=== PATIENT | female | born 1960 | race Caucasian/White ===

== ENCOUNTER 2017-10-29 08:57 | Emergency (ER) | payer BC, OTHER ==
[~2017-10-29] VITALS: Ht 167.6 cm; Wt 105.7 kg
[~2017-10-29 08:57] MED LIST: ALPR.25T; ALPR.25T PO; AMOX-355 PO; ATROVENT; BISA5TAB8 PO; BUDE0.5A2 IH; GLIM1TAB PO; KRILL OIL 300 MG PO; LOSA100T16 PO; LOVA10TA PO; LYSI1000 PO; MAXIDE; MELA1TAB16 PO; METF-380 PO; MULT-963 PO; OMEP20TA2 PO; PRD20T; PRD20T PO; PRILOSEC OTC; SLMFT1E; TRIA1TAB2 PO; VENL150T4 PO; VLS80C; VNL75T; [UNRECOGNIZED DRUG - MIXTURE]
--- OUTSIDE RECORDS SUMMARY | 2017-10-29 09:06 | XMS REPORT | Clinical Summary ---
Author Author User, Accumulate Organization [facility] [place] Address Unknown Phone Unavailable Allergies, Adverse Reactions, Alerts Allergy Name Reaction Description Start Date Severity Status Provider ALBUTEROL Critical No Longer Active Jaki Quinteros Conditions or Problems Problem Name Problem Code Onset Date Status Entry Date Provider Comment Standard Description Annotate HYPERTENSION, BENIGN ESSENTIAL, CONTROLLED 401.1 Active Jaki Quinteros Benign essential hypertension OBESITY 278.00 Resolved Jaki Quinteros Obesity, unspecified WEIGHT GAIN, ABNORMAL 783.1 Active Jaki Qiunteros Abnormal weight gain ALLERGIC RHINITIS, SEASONAL 477.9 Resolved Jaki Quinteros Allergic rhinitis, cause unspecified DIARRHEA, CHRONIC 787.91 Resolved Jaki Quinteros Diarrhea ABDOMINAL BLOATING 787.3 Resolved Jaki Quinteros Flatulence, eructation, and gas pain ABDOMINAL PAIN, RECURRENT 789.00 Resolved Jaki Quinteros Abdominal pain, unspecified site GASTROESOPHAGEAL REFLUX DISEASE, CHRONIC 530.81 Active Jaki Quinteros Esophageal reflux WELL WOMAN V70.0 Resolved Jaki Quinteros Routine general medical examination at a health care facility SHOULDER PAIN 719.41 Resolved Jaki Quinteros Pain in joint involving shoulder region right WELL WOMAN V70.0 Resolved Jaki Quinteros Routine general medical examination at a health care facility IRREGULAR MENSES 626.4 Resolved Jaki Quinteros Irregular menstrual cycle ADULT SITUATIONAL REACTION 309.9 Resolved Jaki Quinteros Unspecified adjustment reaction DIZZINESS 780.4 Resolved Jaki Quinteros Dizziness and giddiness CERVICAL LYMPHADENOPATHY, RIGHT 785.6 Resolved Jaki Quinteros Enlargement of lymph nodes HYPERTRIGLYCERIDEMIA 272.1 Resolved Jaki Quinteros Pure hyperglyceridemia GANGLION CYST 727.43 Resolved Jaki Quinteros Ganglion, unspecified SINUSITIS 473.9 Resolved Jaki Quinteros Unspecified sinusitis (chronic) HAND PAIN, RIGHT 729.5 Resolved Jaki Quinteros Pain in limb CELLULITIS 682.9 Resolved Jaki Quinteros Cellulitis and abscess of unspecified sites SINUSITIS, SPHENOIDAL, ACUTE 461.3 Resolved Jaki Quinteros Acute sphenoidal sinusitis HYPERGLYCEMIA, MILD 790.6 Resolved Jaki Quinteros Other abnormal blood chemistry WHEEZING 786.07 Resolved Jaki Quinteros Wheezing RESPIRATORY FAILURE, ACUTE 518.81 Resolved Jaki Quinteros Acute respiratory failure ASTHMA 493.9 Resolved Jaki Quinteros Asthma, unspecified ASTHMA, CHRN OBST W/(ACUTE) EXACERBATION 493.22 Resolved Jaki Quinteros Chronic obstructive asthma, with (acute) exacerbation WHEEZING 786.07 Resolved Jaki Quinteros Wheezing DIABETES MELLITUS, NONINSULIN DEPENDENT (NIDDM) 250.00 Active Jaki Quinteros Diabetes mellitus without mention of complication, type II or unspecified type, not stated as uncontrolled HYPERTRIGLYCERIDEMIA 272.1 Active Jaki Quinteros Pure hyperglyceridemia ABNORMAL MAMMOGRAM 793.80 Resolved Jaki Quinteros Abnormal mammogram, unspecified CELLULITIS 682.9 Resolved Jaki Quinteros Cellulitis and abscess of unspecified sites RENAL INSUFFICIENCY 593.9 Resolved Jaki Quinteros Unspecified disorder of kidney and ureter WHEEZING 786.07 Resolved Jaki Quinteros Wheezing BRONCHITIS 490 Resolved Jaki Quinteros Bronchitis, not specified as acute or chronic FEVER PRESENTING CONDITIONS CLASSIFIED ELSEWHERE 780.61 Resolved Jaki Quinteros Fever presenting with conditions classified elsewhere RESPIRATORY FAILURE, ACUTE 518.81 Resolved Jaki Quinteros Acute respiratory failure ANKLE PAIN, RIGHT 719.47 Resolved Jaki Quinteros Pain in joint involving ankle and foot HEALTH SCREENING V70.0 Resolved Jaki Quinteros Routine general medical examination at a health care facility ASTHMA, INTERMITTENT, MODERATE 493.10 Active Jaki Quinteros Intrinsic asthma, unspecified MENOPAUSAL SYNDROME 627.0 Active Jaki Quinteros Premenopausal menorrhagia SINUSITIS, SPHENOIDAL, ACUTE 461.3 Active Jaki Quinteros Acute sphenoidal sinusitis Medication List Medication Instructions Start Date Stop Date Generic Name NDC Status Provider Patient Instruction AMARYL 2 MG TAB 2 PO BID GLIMEPIRIDE 61784127294 Active Liliane Kenny PULMICORT 0.5 MG/2ML SUSP 1 Neb treatment BID BUDESONIDE 64534481311 Active Jaki Quinteros AUGMENTIN 500-125 MG TAB 1 PO BID AMOXICILLIN-POT CLAVULANATE 07180118107 No Longer Active Jakifranci Quinteros PREDNISONE 10 MG TAB 2 PO at 1 time twice daily for two days. Then 2 PO at one time once daily for two days. Then 1 PO daily for two days 2013 PREDNISONE 32294310904 No Longer Active Jakifranci Quinteros TOPAMAX 25 MG TABS 1 PO BID TOPIRAMATE 19353020279 No Longer Active Jakifranci Quinteros LIDOCAINE VISCOUS 2 % SOLN 1 tsp gargled q2hrs prn LIDOCAINE HCL 25426484479 No Longer Active Jaki Quinteros ONE TOUCH ULTRA MINI GLUCOMETER STRIPS Check sugar BID ONE TOUCH ULTRA MINI GLUCOMETER STRIPS No Longer Active Jakifranci Quinteros PEN NEEDLES 5/16" 31G X 8 MM MISC as directed INSULIN PEN NEEDLE 28693749995 No Longer Active Jakifranci Quinteros SM MELATONIN 3 MG TABS 1 PO QHS MELATONIN 86138372508 No Longer Active Jakifranci Quinteros PULMICORT 0.5 MG/2ML SUSP 1 Neb treatment BID BUDESONIDE 23987319362 No Longer Active Jaki Quinteros ONE TOUCH FINEPOINT LANCETS MISC As Directed DX: Diabetes 12/10 LANCETS 60485930673 No Longer Active Jakifranci Quinteros PEN NEEDLES 16" 31G X 8 MM MISC as directed INSULIN PEN NEEDLE 50893814704 No Longer Active Jakifranci Quinteros PREDNISONE 20 MG TAB 2 pills at once for 5 days then 1 pill daily for 5 days PREDNISONE 69689334676 No Longer Active Jakifranci Quinteors SINGULAIR 10 MG TABS 1 PO QHS MONTELUKAST SODIUM 42061783570 Active Jaki Piper Quinteros PREDNISONE 20 MG TAB 3 pills daily at once for 2 days, 2 pills daily at once for 2 days, 1 once daily for 2 days PREDNISONE 81169334874 No Longer Active Jaki Quinteros ALBUTEROL SULFATE 0.083 % NEBU SOLN 1 treatment QID prn ALBUTEROL SULFATE 48880646941 Active Jaki Quinteros PREDNISONE 20 MG TAB 3 pills daily at once for 2 days, 2 pills daily at once for 2 days, 1 once daily for 2 days PREDNISONE 59282303034 No Longer Active Jaki Quinteros AUGMENTIN 875-125 MG TAB 1 PO BID AMOXICILLIN-POT CLAVULANATE 86584412682 No Longer Active Jaki Quinteros LATISSE 0.03 % SOLN Apply to eyelashes daily BIMATOPROST 51514287341 No Longer Active Jaki Quinteros TRICOR 48 MG TABS 1 PO daily FENOFIBRATE 95857854353 No Longer Active Jaki Quinteros VICTOZA 18 MG/3ML SOLN 1.8 mg injection daily LIRAGLUTIDE 70535397099 No Longer Active Jaki AMADOR'Jose Alberto NASAL SPRAY (DEXAMETHASONE, GENTAMICIN, SALINE) 2 puffs each nostril TID for [address] AMADOR'Jose Alberto NASAL SPRAY ( DEXAMETHASONE, GENTAMICIN, SALINE) No Longer Active Liliane Kenny AUGMENTIN 875-125 MG TAB 1 PO BID AMOXICILLIN-POT CLAVULANATE 74737747605 No Longer Active Liliane Kenny PROGESTERONE CREAM As directed PROGESTERONE CREAM No Longer Active Jaki Quinteros PEPCID 20 MG TAB 1 PO Qam FAMOTIDINE 13872894701 No Longer Active Jaki Quinteros GLUCOPHAGE 1000 MG TABS 1 PO BID METFORMIN HCL 50285966610 Active Jaki Quinteros COZAAR 100 MG TABS 1 PO daily LOSARTAN POTASSIUM 21570280695 Active Jaki Quinteros BACTROBAN 2 % OINTMENT apply to affected areas BID for 7 days MUPIROCIN 72246368134 No Longer Active Jaki Quinteros BACTRIM DS 800-160 MG TAB 1 PO BID TRIMETHOPRIM- SULFAMETHOXAZOLE 80698468431 No Longer Active Jaki Quinteros ACTICIN 5 % CREA as directed PERMETHRIN 49632095207 No Longer Active Jaki Quinteros PREMPRO 0.3-1.5 MG TABS 1 PO daily CONJ ESTROG- MEDROXYPROGEST DIANE 96838319424 No Longer Active Jaki Quinteros CLARITIN 10 MG TAB 1 PO daily LORATADINE 50708573773 Active Jaki Quinteros ASCENSIA CONTOUR TEST STRP check blood sugar twice daily DX: Diabetes 07/09 GLUCOSE BLOOD 13824340954 No Longer Active Jaki Quinteros ONE TOUCH ULTRA GLUCOMETER As Directed DX: Diabetes ONE TOUCH ULTRA GLUCOMETER No Longer Active Jaki Quinteros DHEA 25 MG TABS 1 po daily PRASTERONE (DHEA) 96618929160 No Longer Active Jaki Quinteros VITAMIN E 400 UNIT CAPS 1 PO daily VITAMIN E 99754866644 No Longer Active Jaki Quinteros FLONASE 50 MCG/DOSE INHALANT 1 puff each nostril BID prn rare use due to increased hoarsness FLONASE 50 MCG/DOSE INHALANT 39405160664 No Longer Active Jaki Quinteros MICRONASE 1.25 MG TABS 1 PO BID (on hold as of 11/19/08 due to lifestyle change ) GLYBURIDE 88972306499 No Longer Active Jaki Quinteros FISH OIL 1000 MG CAPS 3 PO daily OMEGA-3 FATTY ACIDS 85232574445 Active Jaki Quinteros METFORMIN HCL 1000 MG TABS 1 PO BID METFORMIN HCL 81153760397 No Longer Active Jaki AMADOR'S NASAL SPRAY (DEXAMETHASONE, GENTAMICIN, SALINE) 2 puffs each nostril TID for [address] AMADOR'Jose Alberto NASAL SPRAY ( DEXAMETHASONE, GENTAMICIN, SALINE) No Longer Active Jaki Piper Quinteros TESSALON 200 MG CAPS 1 PO TID prn cough BENZONATATE 20588147157 No Longer Active Jaki Piper Quinteros ROBITUSSIN A-C 10-100 MG/5ML SYRUP 1 teaspoon PO Q 4-6 hr prn ROBITUSSIN A-C 10-100 MG/5ML SYRUP 17473614783 No Longer Active Jaki Piper Quinteros LEVAQUIN 500 MG TAB 1 PO QD LEVOFLOXACIN 26124706070 No Longer Active Jaki Piper Quinteros CORICIDIN HBP FLU 15-500-2 MG TABS as directed DM- APAP-CPM 75118958687 No Longer Active Jaki Piper Quinteros LOVASTATIN 10 MG TABS 1 po daily LOVASTATIN 11213730848 Active Jaki iPper Quinteros VITAMIN D 400 UNIT CAPS 1 PO daily CHOLECALCIFEROL 94606618019 Active Jaki Piper Quinteros MULTIVITAMINS TABS 1 PO QD MULTIPLE VITAMIN 82267780130 Active Jaki Piper Quinteros CLARITIN 10 MG TAB 1 PO daily LORATADINE 55929597753 No Longer Active Jaki Piper Quinteros PRILOSEC 20 MG CPDR 1 PO Qhs OMEPRAZOLE 78056400369 Active Jaki Piper Quinteros BYETTA 10 MCG PEN 10 MCG/0.04ML SOLN 1 injection twice daily 30min before meals EXENATIDE 30602265125 No Longer Active Jaki Piper Quinteros ADVAIR DISKUS 250-50 MCG/DOSE MISC 1 puff BID (On hold 09/11/07 due to hoarseness) FLUTICASONE-SALMETEROL 77069865347 No Longer Active Jaki Piper Quinteros ATROVENT SOLN 1 treatment Q6hrs prn wheezing IPRATROPIUM BROMIDE SOLN 35398816848 No Longer Active Jaki Quinteros HOLLIE 180 MG TABS 1 PO QD FEXOFENADINE HCL 56469424441 No Longer Active Jaki Quinteros ADVAIR DISKUS 100-50 MCG/DOSE MISC 1 puff BID FLUTICASONE-SALMETEROL 21204418722 No Longer Active Liliane Kenny ROBITUSSIN A-C 10-100 MG/5ML SYRUP 5cc PO Q 4-6 hr prn ROBITUSSIN A-C 10-100 MG/5ML SYRUP 12109999583 No Longer Active Jaki Quinteros PREDNISONE 20 MG TAB 3 PO daily for 2 days, 2 PO daily for 2 days, 1 PO daily for 3 days PREDNISONE 24077954841 No Longer Active Jaki AMADOR'S NASAL SPRAY (DEXAMETHASONE, GENTAMICIN, SALINE) 2 puffs each nostril TID for [address] AMADOR'S NASAL SPRAY ( DEXAMETHASONE, GENTAMICIN, SALINE) No Longer Active Jaki Quinteros LEVAQUIN 500 MG TAB 1 PO QD for 7 days LEVOFLOXACIN 43497683249 No Longer Active Jaki Quinteros ALBUTEROL SULFATE 0.083 % NEBU SOLN 1 breathing treatment TID prn wheezing ALBUTEROL SULFATE 18321302308 No Longer Active Jaki Quinteros AUGMENTIN 875-125 MG TAB 1 PO BID for 10 days AMOXICILLIN-POT CLAVULANATE 37940315271 No Longer Active Jaki Quinteros EFFEXOR XR 150 MG CP24 1 PO daily VENLAFAXINE HCL 95465079087 Active Jaki Piper Quinteros AUGMENTIN 875-125 MG TAB 1 PO BID AMOXICILLIN-POT CLAVULANATE 75681947404 No Longer Active Jaki AMADOR'Jose Alberto NASAL SPRAY (DEXAMETHASONE, GENTAMICIN, SALINE) 2 puffs each nostril TID for [address] VALDIVIA NASAL SPRAY ( DEXAMETHASONE, GENTAMICIN, SALINE) No Longer Active Jaki Quinteros NAPROXEN 500 MG TAB 1 PO BID for 5 days after taking Prednisone NAPROXEN 63014316126 No Longer Active Jaki Quinteros PREDNISONE 20 MG TAB 3 PO daily for 1 day, then 2 PO daily for 2 days PREDNISONE 63307439687 No Longer Active Jaki Quinteros EFFEXOR XR 37.5 MG CP24 1 PO daily for 7 days then change to 75mg tablets VENLAFAXINE HCL 50773674938 No Longer Active Liliane Kenny XANAX 0.25 MG TABS 1/2 to 1 pill every 6hrs prn ALPRAZOLAM 09445745820 Active Liliane Kenny PHENTERMINE HCL 37.5 MG CAPS 1 PO Daily Dx: Wt loss PHENTERMINE HCL 10659213304 No Longer Active Jaki Quinteros MIDOL CRAMP FORMULA MAX ST 200 MG TABS 2 PO QHS prn IBUPROFEN 53893071514 No Longer Active Jaki Quinteros LEXAPRO 10 MG TABS 1 PO daily ESCITALOPRAM OXALATE 99164271907 No Longer Active Jaki Quinteros ORTHO TRI-CYCLEN (28) 0.035 MG TABS as directed. Start Monday05/15/05 even if on period NORGESTIMATE-ETHINYL ESTRADIOL 70372460682 No Longer Active Jaki Quinteros AMOXICILLIN 875 MG TABS 1 po BID x 7 days AMOXICILLIN 65499973578 No Longer Active Liliane Kenny PHENTERMINE HCL 37.5 MG CAPS 1 daily PHENTERMINE HCL 18004360486 No Longer Active Jaki Quinteros AMOXIL 500 MG CAPS 1 po bid AMOXICILLIN 89115209881 No Longer Active Jaki Piper Quinteros LEVAQUIN 500 MG TAB 1 PO QD LEVOFLOXACIN 31292519698 No Longer Active Jaki Piper Quinteros NEXIUM 40 MG CPDR 1 po qd ESOMEPRAZOLE MAGNESIUM 09135668383 No Longer Active Jaki Piper Quinteros MAXZIDE-25 25-37.5 MG TABS 1 po daily TRIAMTERENE-HCTZ 74407395436 Active Jaki Piper Quinteros DIOVAN 80 MG CAPS 1 po daily VALSARTAN No Longer Active Jaki Quinteros Vital Signs Date Name Value Unit Range Description blood pressure, diastolic - 8462-4 78 mm[Hg] BP monteiro blood pressure, systolic - 8480-6 126 mm[Hg] BP sys pulse rate E&M - 8867-4 80 /min Heart rate respiratory rate E&M - 9279-1 14 /min Resp rate blood pressure, diastolic - 8462-4 76 mm[Hg] BP monteiro blood pressure, systolic - 8480-6 146 mm[Hg] BP sys pulse rate E&M - 8867-4 104 /min Heart rate respiratory rate E&M - 9279-1 20 /min Resp rate temperature E&M 98.1 [degF] Body temperature weight E&M - 3141-9 244 [lb_av] Weight Measured blood pressure, diastolic - 8462-4 75 mm[Hg] BP monteiro blood pressure, systolic - 8480-6 145 mm[Hg] BP sys pulse rate E&M - 8867-4 108 /min Heart rate respiratory rate E&M - 9279-1 14 /min Resp rate temperature E&M 98.6 [degF] Body temperature weight E&M - 3141-9 240 [lb_av] Weight Measured Diagnostic Results Date Name Value Unit Range Description Clinical Lists Update: CBC,CMP,Chol,Trig,TSH,HgA1c - Chemistry albumin, serum 4.3 g/dL Estimated Glomerular Filtration Rate (calc) 71 mL/min/1.73m2 urea nitrogen, blood 14 mg/dL calcium, serum 9.7 mg/dL chloride, serum 102 mmol/L cholesterol, serum 171 mg/dL carbon dioxide, venous blood 28.0 mmol/L creatinine, serum 0.9 mg/dL hemoglobin A1C, blood, as % of total hemoglobin 6.2 % thyroid stimulating hormone, serum 3.82 u[iU]/mL potassium, serum 4.3 mmol/L protein, total, serum 6.7 g/dL aspartate aminotransferase (SGOT), serum 49 U/L alanine aminotransferase (SGPT), serum 67 U/L bilirubin, serum, total 0.3 mg/dL triglyceride, serum, fasting 265 mg/dL sodium, serum 140 mmol/L anion gap, serum 14 glucose, plasma fasting 144 mg/dL alkaline phosphatase, serum 96 U/L Clinical Lists Update: CBC,CMP,Chol,Trig,TSH,HgA1c - Hematology hemoglobin, blood 12.5 g/dL hematocrit, blood 40 % platelet count 342 10*3/mm3 erythrocyte (RBC) count 4.53 10*6/mm3 leukocyte count, blood 7.2 10*3/mm3 mean corpuscular volume, RBC 89 fL red blood cell distribution width 15.0 % Clinical Lists Update: CBC,CMP,FLP,TSH,HGA1C,MICROALBUMIN - Chemistry creatinine, serum 0.8 mg/dL urea nitrogen, blood 14 mg/dL hemoglobin A1C, blood, as % of total hemoglobin 6.5 % thyroid stimulating hormone, serum 2.32 u[iU]/mL LDL cholesterol, serum 81 mg/dL potassium, serum 4.2 mmol/L protein, total, serum 6.8 g/dL aspartate aminotransferase (SGOT), serum 79 U/L alanine aminotransferase (SGPT), serum 76 U/L bilirubin, serum, total 0.4 mg/dL triglyceride, serum, fasting 187 mg/dL sodium, serum 137 mmol/L anion gap, serum 9 cholesterol/HDL ratio, serum, percent 4.5 glucose, plasma fasting 131 mg/dL Estimated Glomerular Filtration Rate (calc) 81 mL/min/1.73m2 HDL cholesterol, serum 34.0 mg/dL alkaline phosphatase, serum 115 U/L albumin, serum 4.2 g/dL calcium, serum 9.6 mg/dL chloride, serum 99 mmol/L cholesterol, serum 152 mg/dL carbon dioxide, venous blood 33.0 mmol/L Clinical Lists Update: CBC,CMP,FLP,TSH,HGA1C,MICROALBUMIN - Hematology hematocrit, blood 40.3 % hemoglobin, blood 12.8 g/dL platelet count 306 10*3/mm3 erythrocyte (RBC) count 4.65 10*6/mm3 leukocyte count, blood 7.8 10*3/mm3 mean corpuscular volume, RBC 87 fL red blood cell distribution width 14.4 % Clinical Lists Update: CBC,CMP,FLP,TSH,HGA1C,MICROALBUMIN - Urinalysis microalbumin, urine, semiquantitative 0.9 mg/dL Office Visit: Dr Quinteros's Check Up: Established Patient Visit - Chemistry Estimated Glomerular Filtration Rate (calc) 73 mL/min/1.73m2 albumin, serum 4.5 g/dL cholesterol/HDL ratio, serum, percent 3.9 anion gap, serum 12 sodium, serum 139 mmol/L triglyceride, serum, fasting 189 mg/dL bilirubin, serum, total 0.4 mg/dL alanine aminotransferase (SGPT), serum 77 U/L aspartate aminotransferase (SGOT), serum 65 U/L protein, total, serum 7.1 g/dL potassium, serum 4.1 mmol/L LDL cholesterol, serum 92 mg/dL hemoglobin A1C, blood, as % of total hemoglobin 6.3 % HDL cholesterol, serum 45.0 mg/dL creatinine, serum 0.9 mg/dL carbon dioxide, venous blood 32.0 mmol/L cholesterol, serum 175 mg/dL chloride, serum 99 mmol/L calcium, serum 9.8 mg/dL urea nitrogen, blood 16 mg/dL alkaline phosphatase, serum 105 U/L glucose, plasma fasting 156 mg/dL Encounters Code Encounter Date Provider Facility CPT-20622 Ofc Vst, Est Level III 16:17:43 ELECTRONIC TESTER Jaki Quinteros DO, FACP CPT-79954 Ofc Vst, Est Level III 14:23:49 CDT Jaki Quinteros DO, FACP CPT-16888 Ofc Vst, Est Level IV 17:17:38 CDT Jaki Quinteros DO, FACP CPT-47831 Ofc Vst, Est Level IV 14:37:31 CDT Jaki Quinteros DO, FACP CPT-30355 Ofc Vst, Est Level III 14:52:42 CDT Jakifranci Abrams Quinteros, DO, FACP CPT-85681 Ofc Vst, Est Level III 13:19:39 CDT Jaki Piper Abrams Quinteros, DO, FACP CPT-53101 Ofc Vst, Est Level III 15:05:35 CDT Jaki Piper [facility] CPT-39610 Ofc Vst, Est Level III 13:30:25 CDT Jaki Piper Abrams Quinteros, DO, FACP CPT-21425 Ofc Vst, Est Level III 14:04:30 ELECTRONIC TESTER Jakifranci Abrams [place], DO, FACP CPT-48859 Ofc Vst, Est Level III 16:00:40 ELECTRONIC TESTER Jaki Piper Abrams [place], DO, FACP CPT-84542 Ofc Vst, Est Level IV 14:15:56 CDT Jakifranci Abrams [place], DO, FACP CPT-56196 Ofc Vst, Est Level IV 10:42:53 CDT Jaki Piper Abrams [place], DO, FACP CPT-20382 Ofc Vst, Est Level IV 15:02:49 ELECTRONIC TESTER Jaki Abrams [place], DO, FACP CPT-39234 Ofc Vst, Est Level IV 16:37:42 CDT Jaki Piper Abrams Quinteros, DO, FACP CPT-30177 Ofc Vst, Est Level IV 10:58:16 CDT Jaki Piper Abrams Quinteros, DO, FACP CPT-75469 Ofc Vst, Est Level III 15:28:22 ELECTRONIC TESTER Jaki Abrams [place], DO, FACP CPT-57638 Ofc Vst, Est Level IV 11:48:02 ELECTRONIC TESTER Jaki Pipergabriel Abrams Quinteros, DO, FACP CPT-73102 Ofc Vst, Est Level IV 11:26:59 CDT Jaki Piper Abrams Quinteros, DO, FACP CPT-74222 Ofc Vst, Est Level IV 10:04:18 CDT Jaki Piper Abrams Quinteros, DO, FACP CPT-16422 Ofc Vst, Est Level IV 09:41:14 ELECTRONIC TESTER Jaki Piper Abrams [place], DO, FACP CPT-46345 Ofc Vst, Est Level IV 09:33:17 ELECTRONIC TESTER Jaki Abrams [place], DO, FACP CPT-07669 Ofc Vst, Est Level IV 09:48:38 CDT Jaki Piper Abrams [place], DO, FACP CPT-91861 Ofc Vst, Est Level V 10:16:57 CDT Jaki Piper Abrams [place], DO, FACP CPT-82004 Ofc Vst, Est Level IV 11:47:36 CDT Jaki Piper Abrams [place], DO, FACP CPT-15770 Ofc Vst, Est Level V 09:55:01 CDT Jakifranci Abrams [place], DO, FACP CPT-93500 Ofc Vst, Est Level V 10:27:45 ELECTRONIC TESTER Jaki Abrams [place], DO, FACP CPT-90851 Ofc Vst, Est Level IV 10:39:22 CDT Jaki Piper Abrams [place], DO, FACP CPT-25210 Ofc Vst, Est Level IV 15:07:09 CDT Jaki Piper Abrams [place], DO, FACP CPT-13648 Ofc Vst, Est Level IV 09:14:21 CDT Jaki Piper Abrams [place], DO, FACP CPT-06310 Ofc Vst, Est Level IV 12:22:58 CDT Jakifranci Saldaña Aldair Jaki Jose Alberto [place], DO, FACP CPT-64085 Ofc Vst, Est Level IV 09:33:19 ELECTRONIC TESTER Jaki Phoenixner Jaki Jose Alberto [place], DO, FACP CPT-09712 Ofc Vst, Est Level V 09:07:30 ELECTRONIC TESTER Jaki Phoenixner Jaki Abrams [place], DO, FACP CPT-10869 Ofc Vst, Est Level IV 12:05:27 ELECTRONIC TESTER Jaki Saldaña Aldair Jaki Jose Alberto [place], DO, FACP CPT-67179 Ofc Vst, Est Level IV 10:42:39 ELECTRONIC TESTER Jaki Piper Aldair Quinteros, DO, FACP CPT-41665 Ofc Vst, Est Level III 13:30:14 ELECTRONIC TESTER Jaki Saldaña Quinteros Jaki Abrams [place], DO, FACP CPT-50118 Ofc Vst, Est Level III 11:09:47 CDT Jakifranci Quinteros [facility] [place] CPT-70192 Ofc Vst, Est Level III 11:50:59 CDT Jaki Quinteros [facility] [place] CPT-41693 Ofc Vst, Est Level III 15:36:19 ELECTRONIC TESTER Jaki Quinteros [facility] [place] CPT-19816 Ofc Vst, Est Level III 09:10:14 CDT Jaki Piper Quinteros [facility] [place] CPT-01671 Ofc Vst, Est Level IV 09:34:47 CDT Jkaifranci Quinteros [facility] [place] CPT-97447 Ofc Vst, Est Level III 16:25:58 CDT Jaki Quinteros [facility] [place] CPT-32267 Ofc Vst, Est Level III 15:07:15 CDT Jakifranci Quinteros [facility] [place] CPT-75410 Ofc Vst, Est Level III 10:49:04 CDT Jaki Piper Quinteros [facility] [place] CPT-41719 Ofc Vst, Est Level III 09:28:26 CDT Jaki Piper Quinteros [facility] [place] CPT-44197 Ofc Vst, Est Level III 09:35:05 ELECTRONIC TESTER Jaki Quinteros [facility] [place] CPT-13933 Ofc Vst, Est Level II 15:32:59 ELECTRONIC TESTER Jaki Quinteros [facility] [place] CPT-82918 Ofc Vst, Est Level III 10:46:19 ELECTRONIC TESTER Jaki Piper Quinteros [facility] [place] CPT-46839 Ofc Vst, Est Level II 09:46:45 CDT Jaki Piper Quinteros [facility] [place] CPT-40446 Ofc Vst, Est Level IV 13:32:33 CDT Jaki Piper Quinteros [facility] [place] CPT-60962 Ofc Vst, Est Level III 17:48:34 CDT Jaki Piper Quinteros [facility] [place] CPT-39446 Ofc Vst, Est Level III 12:54:21 ELECTRONIC TESTER Jaki Quinteros [facility] [place] CPT-57767 Ofc Vst, Est Level IV 12:51:40 ELECTRONIC TESTER Jaki Quinteros [facility] [place] CPT-58741 Ofc Vst, Est Level IV 10:12:07 CDT Jaki Piper Quinteros [facility] [place] CPT-60073 Ofc Vst, Est Level IV 16:50:02 CDT Jaki Piper Quinteros [facility] [place] CPT-71105 Ofc Vst, New Level III 11:08:32 ELECTRONIC TESTER Jaki Quinteros [facility] [place] Procedures Code Procedure Name Date Entry Date Standard Description CPT-09314 Preventive, Est, (40-64) 13:10:19 ELECTRONIC TESTER CPT-04067 Preventive, Est, (40-64) 14:27:17 CDT CPT-26575 Handling of specimen from office to lab 14:27:17 CDT CPT-36389 Preventive, Est, (40-64) 09:29:06 ELECTRONIC TESTER CPT-31728 Preventive, Est, (40-64) 13:01:19 CDT
--- OUTSIDE RECORDS SUMMARY | 2017-10-29 09:07 | XMS REPORT | Clinical Summary ---
Author Author User, [employer] Organization [facility] [place] Address Unknown Phone Unavailable Allergies, Adverse Reactions, [...] unspecified WEIGHT GAIN, ABNORMAL 783.1 Active Jaki Quinteros Abnormal weight gain ALLERGIC RHINITIS, SEASONAL 477.9 [...] Premenopausal menorrhagia SINUSITIS, SPHENOIDAL, ACUTE 461.3 Active Jaik Quinteros Acute sphenoidal sinusitis Medication List Medication Instructions Start Date Stop Date Generic Name NDC Status Provider Patient Instruction PULMICORT 0.5 MG/2ML SUSP 1 Neb treatment BID BUDESONIDE 91671900229 Active Jaki Quinteros AUGMENTIN 500-125 MG TAB 1 PO BID AMOXICILLIN-POT CLAVULANATE 64847496156 No Longer Active Jaki Quinteros PREDNISONE 10 MG TAB 2 PO at 1 time twice daily for two days. Then 2 PO at one time once daily for two days. Then 1 PO daily for two days 2013 PREDNISONE 83498310757 No Longer Active Jaki Quinteros AMARYL 1 MG TABS 2 PO BID GLIMEPIRIDE 60782529957 Active Jakifranci Quinteros TOPAMAX 25 MG TABS 1 PO BID TOPIRAMATE 26087940066 No Longer Active Jakifranci Quinteros LIDOCAINE VISCOUS 2 % SOLN 1 tsp gargled q2hrs prn LIDOCAINE HCL 13968312046 No Longer Active Jaki Quinteros ONE TOUCH ULTRA MINI GLUCOMETER STRIPS Check sugar BID ONE TOUCH ULTRA MINI GLUCOMETER STRIPS No Longer Active Jaki Quinteros PEN NEEDLES 5/16" 31G X 8 MM MISC as directed INSULIN PEN NEEDLE 52856733646 No Longer Active Jaki Quinteros SM MELATONIN 3 MG TABS 1 PO QHS MELATONIN 54142957659 No Longer Active Jaki Quinteros PULMICORT 0.5 MG/2ML SUSP 1 Neb treatment BID BUDESONIDE 73373918295 No Longer Active Jaki Quinteros ONE TOUCH FINEPOINT LANCETS MISC As Directed DX: Diabetes 12/10 LANCETS 49343577144 No Longer Active Jaki Quinteros PEN NEEDLES 16" 31G X 8 MM MISC as directed INSULIN PEN NEEDLE 87537625158 No Longer Active Jaki Quinteros PREDNISONE 20 MG TAB 2 pills at once for 5 days then 1 pill daily for 5 days PREDNISONE 26350226834 No Longer Active Jaki Quinteros SINGULAIR 10 MG TABS 1 PO QHS MONTELUKAST SODIUM 00877933607 Active Jakifranci Quinteros PREDNISONE 20 MG TAB 3 pills daily at once for 2 days, 2 pills daily at once for 2 days, 1 once daily for 2 days PREDNISONE 85882957764 No Longer Active Jaki Quinteros ALBUTEROL SULFATE 0.083 % NEBU SOLN 1 treatment QID prn ALBUTEROL SULFATE 45674603626 Active Jaki Quinteros PREDNISONE 20 MG TAB 3 pills daily at once for 2 days, 2 pills daily at once for 2 days, 1 once daily for 2 days PREDNISONE 96075892178 No Longer Active Jaki Quinteros AUGMENTIN 875-125 MG TAB 1 PO BID AMOXICILLIN-POT CLAVULANATE 83652630770 No Longer Active Jaki Quinteros LATISSE 0.03 % SOLN Apply to eyelashes daily BIMATOPROST 76521856163 No Longer Active Jaki Quinteros TRICOR 48 MG TABS 1 PO daily FENOFIBRATE 51747505850 No Longer Active Jaki Quinteros VICTOZA 18 MG/3ML SOLN 1.8 mg injection daily LIRAGLUTIDE 41820066040 No Longer Active Jaki AMADOR'S NASAL SPRAY (DEXAMETHASONE, GENTAMICIN, SALINE) 2 puffs each nostril TID for [address] AMADOR'Jose Alberto NASAL SPRAY ( DEXAMETHASONE, GENTAMICIN, SALINE) No Longer Active Liliane Kenny AUGMENTIN 875-125 MG TAB 1 PO BID AMOXICILLIN-POT CLAVULANATE 66653862013 No Longer Active Liliane Kenny PROGESTERONE CREAM As directed PROGESTERONE CREAM No Longer Active Jaki Quinteros PEPCID 20 MG TAB 1 PO Qam FAMOTIDINE 82940156567 No Longer Active Jaki Quinteros GLUCOPHAGE 1000 MG TABS 1 PO BID METFORMIN HCL 56374837151 Active Jaki Quinteros COZAAR 100 MG TABS 1 PO daily LOSARTAN POTASSIUM 72665755381 Active Jaki Quinteros BACTROBAN 2 % OINTMENT apply to affected areas BID for 7 days MUPIROCIN 12741975400 No Longer Active Jaki Quinteros BACTRIM DS 800-160 MG TAB 1 PO BID TRIMETHOPRIM- SULFAMETHOXAZOLE 54856530889 No Longer Active Jaki Quinteros ACTICIN 5 % CREA as directed PERMETHRIN 47542841932 No Longer Active Jaki Quinteros PREMPRO 0.3-1.5 MG TABS 1 PO daily CONJ ESTROG- MEDROXYPROGEST DIANE 16387532185 No Longer Active Jaki Quinteros CLARITIN 10 MG TAB 1 PO daily LORATADINE 52273662706 Active Jaki Quinteros ASCENSIA CONTOUR TEST STRP check blood sugar twice daily DX: Diabetes 07/09 GLUCOSE BLOOD 11132593626 No Longer Active Jaki Quinteros ONE TOUCH ULTRA GLUCOMETER As Directed DX: Diabetes ONE TOUCH ULTRA GLUCOMETER No Longer Active Jaki Quinteros DHEA 25 MG TABS 1 po daily PRASTERONE (DHEA) 53265625841 No Longer Active Jaki Quinteros VITAMIN E 400 UNIT CAPS 1 PO daily VITAMIN E 86130894875 No Longer Active Jaki Quinteros FLONASE 50 MCG/DOSE INHALANT 1 puff each nostril BID prn rare use due to increased hoarsness FLONASE 50 MCG/DOSE INHALANT 28602981950 No Longer Active Jaki Quinteros MICRONASE 1.25 MG TABS 1 PO BID (on hold as of 11/19/08 due to lifestyle change ) GLYBURIDE 48780864130 No Longer Active Jaki Quinteros FISH OIL 1000 MG CAPS 3 PO daily OMEGA-3 FATTY ACIDS 48819860796 Active Jaki Quinteros METFORMIN HCL 1000 MG TABS 1 PO BID METFORMIN HCL 18028547075 No Longer Active Jaki AMADOR'S NASAL SPRAY (DEXAMETHASONE, GENTAMICIN, SALINE) 2 puffs each nostril TID for [address] VALDIVIA NASAL SPRAY ( DEXAMETHASONE, GENTAMICIN, SALINE) No Longer Active Jaki Quinteros TESSALON 200 MG CAPS 1 PO TID prn cough BENZONATATE 00537328089 No Longer Active Jaki Piper Quinteros ROBITUSSIN A-C 10-100 MG/5ML SYRUP 1 teaspoon PO Q 4-6 hr prn ROBITUSSIN A-C 10-100 MG/5ML SYRUP 78689985361 No Longer Active Jaki Piper Quinteros LEVAQUIN 500 MG TAB 1 PO QD LEVOFLOXACIN 93049560394 No Longer Active Jaki Piper Quinteros CORICIDIN HBP FLU 15-500-2 MG TABS as directed DM- APAP-CPM 52328391615 No Longer Active Jaki Piper Quinteros LOVASTATIN 10 MG TABS 1 po daily LOVASTATIN 91139762192 Active Jaki Piper Quinteros VITAMIN D 400 UNIT CAPS 1 PO daily CHOLECALCIFEROL 44838389553 Active Jaki Piper Quinteros MULTIVITAMINS TABS 1 PO QD MULTIPLE VITAMIN 00822304712 Active Jaki Piper Quinteros CLARITIN 10 MG TAB 1 PO daily LORATADINE 94627419566 No Longer Active Jakifranci Quinteros PRILOSEC 20 MG CPDR 1 PO Qhs OMEPRAZOLE 48763895869 Active Jaki Piper Quinteros BYETTA 10 MCG PEN 10 MCG/0.04ML SOLN 1 injection twice daily 30min before meals EXENATIDE 18909735095 No Longer Active Jaki Piper Quinteros ADVAIR DISKUS 250-50 MCG/DOSE MISC 1 puff BID (On hold 09/11/07 due to hoarseness) FLUTICASONE-SALMETEROL 69998094225 No Longer Active Jaki Piper Quinteros ATROVENT SOLN 1 treatment Q6hrs prn wheezing IPRATROPIUM BROMIDE SOLN 70367785765 No Longer Active Jaki Quinteros HOLLIE 180 MG TABS 1 PO QD FEXOFENADINE HCL 14536236828 No Longer Active Jaki Quinteros ADVAIR DISKUS 100-50 MCG/DOSE MISC 1 puff BID FLUTICASONE-SALMETEROL 92825082525 No Longer Active Liliane Kenny ROBITUSSIN A-C 10-100 MG/5ML SYRUP 5cc PO Q 4-6 hr prn ROBITUSSIN A-C 10-100 MG/5ML SYRUP 87009793920 No Longer Active Jaki Quinteros PREDNISONE 20 MG TAB 3 PO daily for 2 days, 2 PO daily for 2 days, 1 PO daily for 3 days PREDNISONE 74064197403 No Longer Active Jaki AMADOR'S NASAL SPRAY (DEXAMETHASONE, GENTAMICIN, SALINE) 2 puffs each nostril TID for [address] AMADOR'S NASAL SPRAY ( DEXAMETHASONE, GENTAMICIN, SALINE) No Longer Active Jaki Quinteros LEVAQUIN 500 MG TAB 1 PO QD for 7 days LEVOFLOXACIN 46481437545 No Longer Active Jaki Quinteros ALBUTEROL SULFATE 0.083 % NEBU SOLN 1 breathing treatment TID prn wheezing ALBUTEROL SULFATE 17603475391 No Longer Active Jaki Quinteros AUGMENTIN 875-125 MG TAB 1 PO BID for 10 days AMOXICILLIN-POT CLAVULANATE 69736733550 No Longer Active Jaki Quinteros EFFEXOR XR 150 MG CP24 1 PO daily VENLAFAXINE HCL 64971330375 Active Jakifranci Quinteros AUGMENTIN 875-125 MG TAB 1 PO BID AMOXICILLIN-POT CLAVULANATE 49279035838 No Longer Active Jaki AMADOR'Jose Alberto NASAL SPRAY (DEXAMETHASONE, GENTAMICIN, SALINE) 2 puffs each nostril TID for [address] VALDIVIA NASAL SPRAY ( DEXAMETHASONE, GENTAMICIN, SALINE) No Longer Active Jaki Quinteros NAPROXEN 500 MG TAB 1 PO BID for 5 days after taking Prednisone NAPROXEN 07685040700 No Longer Active Jaki Quinteros PREDNISONE 20 MG TAB 3 PO daily for 1 day, then 2 PO daily for 2 days PREDNISONE 32165965540 No Longer Active Jaki Quinteros EFFEXOR XR 37.5 MG CP24 1 PO daily for 7 days then change to 75mg tablets VENLAFAXINE HCL 86380369368 No Longer Active Liliane Kenny XANAX 0.25 MG TABS 1/2 to 1 pill every 6hrs prn ALPRAZOLAM 74239460105 Active Liliane Kenny PHENTERMINE HCL 37.5 MG CAPS 1 PO Daily Dx: Wt loss PHENTERMINE HCL 88313081518 No Longer Active Jaki Quinteros MIDOL CRAMP FORMULA MAX ST 200 MG TABS 2 PO QHS prn IBUPROFEN 89882005131 No Longer Active Jaki Quinteros LEXAPRO 10 MG TABS 1 PO daily ESCITALOPRAM OXALATE 37063448960 No Longer Active Jaki Quinteros ORTHO TRI-CYCLEN (28) 0.035 MG TABS as directed. Start Monday05/15/05 even if on period NORGESTIMATE-ETHINYL ESTRADIOL 89617821527 No Longer Active Jaki Quinteros AMOXICILLIN 875 MG TABS 1 po BID x 7 days AMOXICILLIN 11290389631 No Longer Active Liliane Kenny PHENTERMINE HCL 37.5 MG CAPS 1 daily PHENTERMINE HCL 16614302608 No Longer Active Jaki Quinteros AMOXIL 500 MG CAPS 1 po bid AMOXICILLIN 89480267030 No Longer Active Jaki Piper Quinteros LEVAQUIN 500 MG TAB 1 PO QD LEVOFLOXACIN 73713663709 No Longer Active Jaki Piper Quinteros NEXIUM 40 MG CPDR 1 po qd ESOMEPRAZOLE MAGNESIUM 27622342147 No Longer Active Jaki Piper Quinteros MAXZIDE-25 25-37.5 MG TABS 1 po daily TRIAMTERENE-HCTZ 86010412695 Active Jaki Piper Quinteros DIOVAN 80 MG [...] Description Clinical Lists Update: CBC,CMP,Chol,Trig,TSH,HgA1c - Chemistry calcium, serum 9.7 mg/dL anion gap, serum 14 bilirubin, serum, total 0.3 mg/dL hemoglobin A1C, blood, as % of total hemoglobin 6.2 % thyroid stimulating hormone, serum 3.82 u[iU]/mL alanine aminotransferase (SGPT), serum 67 U/L carbon dioxide, venous blood 28.0 mmol/L triglyceride, serum, fasting 265 mg/dL albumin, serum 4.3 g/dL potassium, serum 4.3 mmol/L alkaline phosphatase, serum 96 U/L Estimated Glomerular Filtration Rate (calc) 71 mL/min/1.73m2 urea nitrogen, blood 14 mg/dL protein, total, serum 6.7 g/dL creatinine, serum 0.9 mg/dL sodium, serum 140 mmol/L chloride, serum 102 mmol/L aspartate aminotransferase (SGOT), serum 49 U/L cholesterol, serum 171 mg/dL glucose, plasma fasting 144 mg/dL Clinical Lists Update: CBC,CMP,Chol,Trig,TSH,HgA1c - Hematology hematocrit, blood 40 % red blood cell distribution width 15.0 % mean corpuscular volume, RBC 89 fL leukocyte count, blood 7.2 10*3/mm3 erythrocyte (RBC) count 4.53 10*6/mm3 platelet count 342 10*3/mm3 hemoglobin, blood 12.5 g/dL Office Visit: Dr Quinteros's Check Up: Established Patient Visit - Chemistry albumin, serum 4.5 g/dL alkaline phosphatase, serum 105 U/L urea nitrogen, blood 16 mg/dL calcium, serum 9.8 mg/dL chloride, serum 99 mmol/L cholesterol, serum 175 mg/dL carbon dioxide, venous blood 32.0 mmol/L creatinine, serum 0.9 mg/dL HDL cholesterol, serum 45.0 mg/dL hemoglobin A1C, blood, as % of total hemoglobin 6.3 % LDL cholesterol, serum 92 mg/dL potassium, serum 4.1 mmol/L protein, total, serum 7.1 g/dL aspartate aminotransferase (SGOT), serum 65 U/L alanine aminotransferase (SGPT), serum 77 U/L bilirubin, serum, total 0.4 mg/dL triglyceride, serum, fasting 189 mg/dL sodium, serum 139 mmol/L anion gap, serum 12 cholesterol/HDL ratio, serum, percent 3.9 glucose, plasma fasting 156 mg/dL Estimated Glomerular Filtration Rate (calc) 73 mL/min/1.73m2 Encounters Code Encounter Date Provider Facility CPT-18271 Ofc Vst, Est Level III 16:17:43 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 Jaki Quinteros DO, FACP CPT-21200 Ofc Vst, Est Level III 14:23:49 CDT Jaki Quinteros DO, FACP CPT-33450 Ofc Vst, Est Level IV 17:17:38 CDT Jaki Quinteros DO, FACP CPT-21409 Ofc Vst, Est Level IV 14:37:31 CDT Jaki Quinteros DO, FACP CPT-22280 Ofc Vst, Est Level III 14:52:42 CDT Jaki Meadowsi S Aldair, DO, FACP CPT-55012 Ofc Vst, Est Level III 13:19:39 CDT Jaki Piper Abrams Aldair, DO, FACP CPT-33551 Ofc Vst, Est Level III 15:05:35 CDT Ajki Piper [facility] CPT-60155 Ofc Vst, Est Level III 13:30:25 CDT Jaki Piper Abrams Quinteros, DO, FACP CPT-35234 Ofc Vst, Est Level III 14:04:30 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 Jaki Abrams Aldair, DO, FACP CPT-91305 Ofc Vst, Est Level III 16:00:40 ASS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 Jaki Abrams Aldair, DO, FACP CPT-01870 Ofc Vst, Est Level IV 14:15:56 CDT Jaki Piper Abrams Aldair, DO, FACP CPT-58227 Ofc Vst, Est Level IV 10:42:53 CDT Jaki Piper Abrams Aldair, DO, FACP CPT-14544 Ofc Vst, Est Level IV 15:02:49 ASS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 Jaki Abrams Aldair, DO, FACP CPT-35436 Ofc Vst, Est Level IV 16:37:42 CDT Jaki Piper Abrams Aldair, DO, FACP CPT-50900 Ofc Vst, Est Level IV 10:58:16 CDT Jaki Piper Abrams Aldair, DO, FACP CPT-33591 Ofc Vst, Est Level III 15:28:22 ASS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 Jaki Abrams Aldair, DO, FACP CPT-53726 Ofc Vst, Est Level IV 11:48:02 ASS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 Jaki Piper Abrams Aldair, DO, FACP CPT-99588 Ofc Vst, Est Level IV 11:26:59 CDT Jakifranci Abrams Quinteros, DO, FACP CPT-06328 Ofc Vst, Est Level IV 10:04:18 CDT Jaki Piper Abrams Quniteros, DO, FACP CPT-48992 Ofc Vst, Est Level IV 09:41:14 ASS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 Jaki Piper Abrams Quinteros, DO, FACP CPT-68326 Ofc Vst, Est Level IV 09:33:17 ASSISTANT 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 Jaki Abrams Quinteros, DO, FACP CPT-82125 Ofc Vst, Est Level IV 09:48:38 CDT Jaki Abrams Aldair, DO, FACP CPT-74383 Ofc Vst, Est Level V 10:16:57 CDT Jaki Piper Abrams Aldair, DO, FACP CPT-14013 Ofc Vst, Est Level IV 11:47:36 CDT Jakifranci Abrams Aldair, DO, FACP CPT-78840 Ofc Vst, Est Level V 09:55:01 CDT Jakifranci Abrams Quinteros, DO, FACP CPT-96391 Ofc Vst, Est Level V 10:27:45 ASS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 Jaki Abrams Aldair, DO, FACP CPT-83304 Ofc Vst, Est Level IV 10:39:22 CDT Jakifranci Abrams Quinteros, DO, FACP CPT-34488 Ofc Vst, Est Level IV 15:07:09 CDT Jakifranci Abrams Quinteros, DO, FACP CPT-26724 Ofc Vst, Est Level IV 09:14:21 CDT Jakifranci Abrams Aldair, DO, FACP CPT-32907 Ofc Vst, Est Level IV 12:22:58 CDT Jaki Piper Aldair Pollack S Quinteros, DO, FACP CPT-95046 Ofc Vst, Est Level IV 09:33:19 ASSISTANT 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 Jaki Saldaña Aldair Jaki S Quinteros, DO, FACP CPT-01857 Ofc Vst, Est Level V 09:07:30 ASSISTANT 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 Jaki Piper Aldair Meadowsi S Aldair, DO, FACP CPT-29401 Ofc Vst, Est Level IV 12:05:27 ASSISTANT 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 Jaki Piper Aldair Meadowsi S Quinteros, DO, FACP CPT-03666 Ofc Vst, Est Level IV 10:42:39 ASSISTANT 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 Jaki Piper Aldair Meadowsi S Aldair, DO, FACP CPT-05756 Ofc Vst, Est Level III 13:30:14 ASSISTANT 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 Jaki Piper Aldair Pollack S Aldair, DO, FACP CPT-53003 Ofc Vst, Est Level III 11:09:47 CDT Jakifranci Quinteros [facility] [place] CPT-88732 Ofc Vst, Est Level III 11:50:59 CDT Jakifranci Quinteros [facility] [place] CPT-56160 Ofc Vst, Est Level III 15:36:19 ASS[employer] 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 Jaki Quinteros [facility] [place] CPT-01096 Ofc Vst, Est Level III 09:10:14 CDT Jaki Piper Quinteros [facility] [place] CPT-40918 Ofc Vst, Est Level IV 09:34:47 CDT Jaki Piper Quinteros [facility] [place] CPT-61119 Ofc Vst, Est Level III 16:25:58 CDT Jaki Piper Quinteros [facility] [place] CPT-04827 Ofc Vst, Est Level III 15:07:15 CDT Jaki Quinteros [facility] [place] CPT-21806 Ofc Vst, Est Level III 10:49:04 CDT Jaki Piper Quinteros [facility] [place] CPT-62568 Ofc Vst, Est Level III 09:28:26 CDT Jaki Piper Quinteros [facility] [place] CPT-53381 Ofc Vst, Est Level III 09:35:05 ASS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 Jaki Quinteros [facility] [place] CPT-50111 Ofc Vst, Est Level II 15:32:59 ASS[employer]ANT 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 Jaki Quinteros [facility] [place] CPT-83414 Ofc Vst, Est Level III 10:46:19 ASSISTANT 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 Jaki Quinteros [facility] [place] CPT-07286 Ofc Vst, Est Level II 09:46:45 CDT Jaki Piper Quinteros [facility] [place] CPT-84467 Ofc Vst, Est Level IV 13:32:33 CDT Jaki Piper Quinteros [facility] [place] CPT-18962 Ofc Vst, Est Level III 17:48:34 CDT Jaki Piper Quinterso [facility] [place] CPT-25423 Ofc Vst, Est Level III 12:54:21 ASSISTANT 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 Jaki Quinteros [facility] [place] CPT-04520 Ofc Vst, Est Level IV 12:51:40 ASSISTANT 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 Jaki Quinteros [facility] [place] CPT-88203 Ofc Vst, Est Level IV 10:12:07 CDT Jaki Quinteros [facility] [place] CPT-53664 Ofc Vst, Est Level IV 16:50:02 CDT Jaki Piper Quinteros [facility] [place] CPT-64884 Ofc Vst, New Level III 11:08:32 ASS[employer]ANT 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 Jaki Quinteros [facility] [place] Procedures Code Procedure Name Date Entry Date Standard Description CPT-43887 Preventive, Est, (40-64) 13:10:19 ASS[employer]ANT 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 CPT-51507 Preventive, Est, (40-64) 14:27:17 CDT CPT-02446 Handling of specimen from office to lab 14:27:17 CDT CPT-07030 Preventive, Est, (40-64) 09:29:06 ASS[employer]ANT 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
--- OUTSIDE RECORDS SUMMARY | 2017-10-29 09:08 | XMS REPORT | Clinical Summary ---
Author Author User, MAURICE Organization [facility] Physician [place] Address Unknown Phone Unavailable Allergies, Adverse Reactions, [...] Quinteros Premenopausal menorrhagia SINUSITIS, SPHENOIDAL, ACUTE 461.3 Resolved Jaki Quinteros Acute sphenoidal sinusitis Medication List Medication Instructions Start Date Stop Date Generic Name NDC Status Provider Patient Instruction PULMICORT 0.5 MG/2ML SUSP 1 Neb treatment BID BUDESONIDE [id number] No Longer Active Jaki Quinteros SINGULAIR 10 MG TABS 1 PO QHS MONTELUKAST SODIUM 84567311089 No Longer Active Jaki Quinteros NEXIUM 20 MG CPDR 1 po daily ESOMEPRAZOLE MAGNESIUM 46495006401 Active Jakifranci Quinteros AMARYL 2 MG TAB 2 PO BID GLIMEPIRIDE 09291593247 Active Jakifranci Quinteros AUGMENTIN 500-125 MG TAB 1 PO BID AMOXICILLIN-POT CLAVULANATE 13119913563 No Longer Active Jakifranci Quinteros PREDNISONE 10 MG TAB 2 PO at 1 time twice daily for two days. Then 2 PO at one time once daily for two days. Then 1 PO daily for two days 2013 PREDNISONE 31074646914 No Longer Active Jaki Quinteros TOPAMAX 25 MG TABS 1 PO BID TOPIRAMATE 71723791904 No Longer Active Jaki Quinteros LIDOCAINE VISCOUS 2 % SOLN 1 tsp gargled q2hrs prn LIDOCAINE HCL 36425933489 No Longer Active Jaki Quinteros ONE TOUCH ULTRA MINI GLUCOMETER STRIPS Check sugar BID ONE TOUCH ULTRA MINI GLUCOMETER STRIPS No Longer Active Jaki Quinteros PEN NEEDLES 5/16" 31G X 8 MM MISC as directed INSULIN PEN NEEDLE 36224086301 No Longer Active Jaki Quinteros SM MELATONIN 3 MG TABS 1 PO QHS MELATONIN 34483319725 No Longer Active Jaki Quinteros PULMICORT 0.5 MG/2ML SUSP 1 Neb treatment BID BUDESONIDE 54647144445 No Longer Active Jaki Quinteros ONE TOUCH FINEPOINT LANCETS MISC As Directed DX: Diabetes 12/10 LANCETS 26985151191 No Longer Active Jaki Quinteros PEN NEEDLES 5/16" 31G X 8 MM MISC as directed INSULIN PEN NEEDLE 06883730672 No Longer Active Jaki Quinteros PREDNISONE 20 MG TAB 2 pills at once for 5 days then 1 pill daily for 5 days PREDNISONE 36436989363 No Longer Active Jaki Quinteros PREDNISONE 20 MG TAB 3 pills daily at once for 2 days, 2 pills daily at once for 2 days, 1 once daily for 2 days PREDNISONE 37284976860 No Longer Active Jaki Quinteros ALBUTEROL SULFATE 0.083 % NEBU SOLN 1 treatment QID prn ALBUTEROL SULFATE 68896856266 Active Jaki Quinteros PREDNISONE 20 MG TAB 3 pills daily at once for 2 days, 2 pills daily at once for 2 days, 1 once daily for 2 days PREDNISONE 47360095205 No Longer Active Jaki Quinteros AUGMENTIN 875-125 MG TAB 1 PO BID AMOXICILLIN-POT CLAVULANATE 54090578218 No Longer Active Jaki Quinteros LATISSE 0.03 % SOLN Apply to eyelashes daily BIMATOPROST 10218458222 No Longer Active Jaki Quinteros TRICOR 48 MG TABS 1 PO daily FENOFIBRATE 47397575152 No Longer Active Jaki Quinteros VICTOZA 18 MG/3ML SOLN 1.8 mg injection daily LIRAGLUTIDE 01292248350 No Longer Active Jaki AMADOR'S NASAL SPRAY (DEXAMETHASONE, GENTAMICIN, SALINE) 2 puffs each nostril TID for [address] VALDIVIA NASAL SPRAY ( DEXAMETHASONE, GENTAMICIN, SALINE) No Longer Active Liliane Kenny AUGMENTIN 875-125 MG TAB 1 PO BID AMOXICILLIN-POT CLAVULANATE 67698850540 No Longer Active Liliane Kenny PROGESTERONE CREAM As directed PROGESTERONE CREAM No Longer Active Jaki Quinteros PEPCID 20 MG TAB 1 PO Qam FAMOTIDINE 09233650096 No Longer Active Jaki Quinteros GLUCOPHAGE 1000 MG TABS 1 PO BID METFORMIN HCL 21025601868 Active Jaki Quinteros COZAAR 100 MG TABS 1 PO daily LOSARTAN POTASSIUM 37277566744 Active Jaki Quinteros BACTROBAN 2 % OINTMENT apply to affected areas BID for 7 days MUPIROCIN 05475877143 No Longer Active Jaki Quinteros BACTRIM DS 800-160 MG TAB 1 PO BID TRIMETHOPRIM- SULFAMETHOXAZOLE 79786277991 No Longer Active Jaki Quinteros ACTICIN 5 % CREA as directed PERMETHRIN 53730488339 No Longer Active Jaki Quinteros PREMPRO 0.3-1.5 MG TABS 1 PO daily CONJ ESTROG- MEDROXYPROGEST DIANE 77047984751 No Longer Active Jaki Quinteros CLARITIN 10 MG TAB 1 PO daily LORATADINE 26191047186 Active Jaki Quinteros ASCENSIA CONTOUR TEST STRP check blood sugar twice daily DX: Diabetes 07/09 GLUCOSE BLOOD 00441518030 No Longer Active Jaki Quinteros ONE TOUCH ULTRA GLUCOMETER As Directed DX: Diabetes ONE TOUCH ULTRA GLUCOMETER No Longer Active Jaki Quinteros DHEA 25 MG TABS 1 po daily PRASTERONE (DHEA) 61636759311 No Longer Active Jaki Quinteros VITAMIN E 400 UNIT CAPS 1 PO daily VITAMIN E 42367731778 No Longer Active Jaki Quinteros FLONASE 50 MCG/DOSE INHALANT 1 puff each nostril BID prn rare use due to increased hoarsness FLONASE 50 MCG/DOSE INHALANT 82170710840 No Longer Active Jaki Quinteros MICRONASE 1.25 MG TABS 1 PO BID (on hold as of 11/19/08 due to lifestyle change ) GLYBURIDE 09042021755 No Longer Active Jaki Quinteros FISH OIL 1000 MG CAPS 3 PO daily OMEGA-3 FATTY ACIDS 70722472753 Active Jaki Phoenixner METFORMIN HCL 1000 MG TABS 1 PO BID METFORMIN HCL 47107922594 No Longer Active Jaki Piper AMADOR'Jose Alberto NASAL SPRAY (DEXAMETHASONE, GENTAMICIN, SALINE) 2 puffs each nostril TID for [address] VALDIVIA NASAL SPRAY ( DEXAMETHASONE, GENTAMICIN, SALINE) No Longer Active Jaki Piper Quinteros TESSALON 200 MG CAPS 1 PO TID prn cough BENZONATATE 52505854771 No Longer Active Jaki Piper Quinteros ROBITUSSIN A-C 10-100 MG/5ML SYRUP 1 teaspoon PO Q 4-6 hr prn ROBITUSSIN A-C 10-100 MG/5ML SYRUP 12775899258 No Longer Active Jaki Piper Quinteros LEVAQUIN 500 MG TAB 1 PO QD LEVOFLOXACIN 32937244921 No Longer Active Jaki Piper Quinteros CORICIDIN HBP FLU 15-500-2 MG TABS as directed DM- APAP-CPM 38889822112 No Longer Active Jaki Piper Quinteros LOVASTATIN 10 MG TABS 1 po daily LOVASTATIN 74450091829 Active Jaki Piper Quinteros VITAMIN D 400 UNIT CAPS 1 PO daily CHOLECALCIFEROL 49781918043 Active Jaki Piper Quinteros MULTIVITAMINS TABS 1 PO QD MULTIPLE VITAMIN 10089070328 Active Jaki Piper Quinteros CLARITIN 10 MG TAB 1 PO daily LORATADINE 41480607082 No Longer Active Jaki Piper Quinteros PRILOSEC 20 MG CPDR 1 PO Qhs OMEPRAZOLE 49622243164 No Longer Active Jaki Piper Quinteros BYETTA 10 MCG PEN 10 MCG/0.04ML SOLN 1 injection twice daily 30min before meals EXENATIDE 08080626837 No Longer Active Jaki Piper Quinteros ADVAIR DISKUS 250-50 MCG/DOSE MISC 1 puff BID (On hold 3/25/08 due to hoarseness) FLUTICASONE-SALMETEROL 70961206626 No Longer Active Jaki Quinteros ATROVENT SOLN 1 treatment Q6hrs prn wheezing IPRATROPIUM BROMIDE SOLN 09094928174 No Longer Active Jaki Quinteros HOLLIE 180 MG TABS 1 PO QD FEXOFENADINE HCL 81665743711 No Longer Active Jaki Quinteros ADVAIR DISKUS 100-50 MCG/DOSE MISC 1 puff BID FLUTICASONE-SALMETEROL 98896316041 No Longer Active Liliane Kenny ROBITUSSIN A-C 10-100 MG/5ML SYRUP 5cc PO Q 4-6 hr prn ROBITUSSIN A-C 10-100 MG/5ML SYRUP 55239508723 No Longer Active Jaki Quinteros PREDNISONE 20 MG TAB 3 PO daily for 2 days, 2 PO daily for 2 days, 1 PO daily for 3 days PREDNISONE 69958695146 No Longer Active Jaki AMADOR'Jose Alberto NASAL SPRAY (DEXAMETHASONE, GENTAMICIN, SALINE) 2 puffs each nostril TID for [address] AMADOR'Jose Alberto NASAL SPRAY ( DEXAMETHASONE, GENTAMICIN, SALINE) No Longer Active Jaki Quinteros LEVAQUIN 500 MG TAB 1 PO QD for 7 days LEVOFLOXACIN 55590789566 No Longer Active Jaki Quinteros ALBUTEROL SULFATE 0.083 % NEBU SOLN 1 breathing treatment TID prn wheezing ALBUTEROL SULFATE 98535079325 No Longer Active Jaki Quinteros AUGMENTIN 875-125 MG TAB 1 PO BID for 10 days AMOXICILLIN-POT CLAVULANATE 89596485523 No Longer Active Jaki Quinteros EFFEXOR XR 150 MG CP24 1 PO daily VENLAFAXINE HCL 59231738327 Active Jaki Quinteros AUGMENTIN 875-125 MG TAB 1 PO BID AMOXICILLIN-POT CLAVULANATE 10006931962 No Longer Active Jaki AMADOR'Jose Alberto NASAL SPRAY (DEXAMETHASONE, GENTAMICIN, SALINE) 2 puffs each nostril TID for [address] VALDIVIA NASAL SPRAY ( DEXAMETHASONE, GENTAMICIN, SALINE) No Longer Active Jaki Quinteros NAPROXEN 500 MG TAB 1 PO BID for 5 days after taking Prednisone NAPROXEN 66077361459 No Longer Active Jaki Quinteros PREDNISONE 20 MG TAB 3 PO daily for 1 day, then 2 PO daily for 2 days PREDNISONE 98405793115 No Longer Active Jaki Quinteros EFFEXOR XR 37.5 MG CP24 1 PO daily for 7 days then change to 75mg tablets VENLAFAXINE HCL 81528161381 No Longer Active Liliane Rodrigueztis XANAX 0.25 MG TABS 1/2 to 1 pill every 6hrs prn ALPRAZOLAM 93842910230 Active Jaki Quinteros PHENTERMINE HCL 37.5 MG CAPS 1 PO Daily Dx: Wt loss PHENTERMINE HCL 45845329647 No Longer Active Jaki Quinteros MIDOL CRAMP FORMULA MAX ST 200 MG TABS 2 PO QHS prn IBUPROFEN 23643894605 No Longer Active Jaki Quinteros LEXAPRO 10 MG TABS 1 PO daily ESCITALOPRAM OXALATE 17372805799 No Longer Active Jaki Quinterso ORTHO TRI-CYCLEN (28) 0.035 MG TABS as directed. Start Monday05/15/05 even if on period NORGESTIMATE-ETHINYL ESTRADIOL 25899256906 No Longer Active Jaki Quinteros AMOXICILLIN 875 MG TABS 1 po BID x 7 days AMOXICILLIN 96816671264 No Longer Active Liliane Rodrigueztis PHENTERMINE HCL 37.5 MG CAPS 1 daily PHENTERMINE HCL 13230034129 No Longer Active Jaki Saldaña Aldair AMOXIL 500 MG CAPS 1 po bid AMOXICILLIN 86867710361 No Longer Active Jaki Piper [place] LEVAQUIN 500 MG TAB 1 PO QD LEVOFLOXACIN 15433506823 No Longer Active Jaki Piper Quinteros NEXIUM 40 MG CPDR 1 po qd ESOMEPRAZOLE MAGNESIUM 19357927101 No Longer Active Jaki Piper Phoenixner MAXZIDE-25 25-37.5 MG TABS 1 po daily TRIAMTERENE-HCTZ 84054115497 Active Jaki Piper [place] DIOVAN 80 MG CAPS 1 po daily VALSARTAN No Longer Active Jaki Piper [place] Vital Signs Date Name Value Unit Range Description blood pressure, diastolic - 8462-4 82 mm[Hg] BP monteiro blood pressure, systolic - 8480-6 142 mm[Hg] BP sys pulse rate E&M - 8867-4 14 /min Heart rate respiratory rate E&M - 9279-1 102 /min Resp rate temperature E&M 98.6 [degF] Body temperature weight E&M - 3141-9 245 [lb_av] Weight Measured blood pressure, diastolic - 8462-4 78 mm[Hg] [...] 8867-4 104 /min Heart rate respiratory rate E& - 9279-1 20 /min Resp rate temperature E& 98.1 [degF] Body temperature weight E& - 3141-9 244 [lb_av] Weight Measured Diagnostic Results Date Name Value Unit Range Description Clinical Lists Update: CBC,CMP,FLP,TSH,HGA1C,MICROALBUMIN - Chemistry Estimated Glomerular Filtration Rate (calc) 81 mL/min/1.73m2 albumin, serum 4.2 g/dL cholesterol/HDL ratio, serum, percent 4.5 anion gap, serum 9 sodium, serum 137 mmol/L triglyceride, serum, fasting 187 mg/dL bilirubin, serum, total 0.4 mg/dL alanine aminotransferase (SGPT), serum 76 U/L aspartate aminotransferase (SGOT), serum 79 U/L protein, total, serum 6.8 g/dL potassium, serum 4.2 mmol/L LDL cholesterol, serum 81 mg/dL thyroid stimulating hormone, serum 2.32 u[iU]/mL hemoglobin A1C, blood, as % of total hemoglobin 6.5 % HDL cholesterol, serum 34.0 mg/dL creatinine, serum 0.8 mg/dL carbon dioxide, venous blood 33.0 mmol/L cholesterol, serum 152 mg/dL chloride, serum 99 mmol/L calcium, serum 9.6 mg/dL urea nitrogen, blood 14 mg/dL alkaline phosphatase, serum 115 U/L glucose, plasma fasting 131 mg/dL Clinical Lists Update: CBC,CMP,FLP,TSH,HGA1C,MICROALBUMIN - Hematology hematocrit, [...] Estimated Glomerular Filtration Rate (calc) 73 mL/min/1.73m2 protein, total, serum 7.1 g/dL potassium, serum 4.1 mmol/L LDL cholesterol, serum 92 mg/dL hemoglobin A1C, blood, as % of total hemoglobin 6.3 % HDL cholesterol, serum 45.0 mg/dL creatinine, serum 0.9 mg/dL carbon dioxide, venous blood 32.0 mmol/L cholesterol, serum 175 mg/dL chloride, serum 99 mmol/L calcium, serum 9.8 mg/dL urea nitrogen, blood 16 mg/dL alkaline phosphatase, serum 105 U/L albumin, serum 4.5 g/dL bilirubin, serum, total 0.4 mg/dL triglyceride, serum, fasting 189 mg/dL sodium, serum 139 mmol/L anion gap, serum 12 cholesterol/HDL ratio, serum, percent 3.9 glucose, plasma fasting 156 mg/dL alanine aminotransferase (SGPT), serum 77 U/L aspartate aminotransferase (SGOT), serum 65 U/L Encounters Code Encounter Date Provider Facility CPT-93006 Ofc Vst, Est Level III 12:25:04 CDT Jaki Quinteros DO, FAC CPT-27906 Ofc Vst, Est Level III 16:17:43 PE MANAGER Jaki Abrams Quinteros, DO, FACP CPT-03828 Ofc Vst, Est Level III 14:23:49 CDT Jaki Piper Abrams Quinteros, DO, FACP CPT-13656 Ofc Vst, Est Level IV 17:17:38 CDT Jaki Piper Abrams Quinteros, DO, FACP CPT-43332 Ofc Vst, Est Level IV 14:37:31 CDT Jaki Piper Abrams Quinteros, DO, FACP CPT-74191 Ofc Vst, Est Level III 14:52:42 CDT Jaki Piper Abrams Aldair, DO, FACP CPT-09090 Ofc Vst, Est Level III 13:19:39 CDT Jaki Piper Abrams [place], DO, FACP CPT-73382 Ofc Vst, Est Level III 15:05:35 CDT Jakifranci [facility] CPT-93364 Ofc Vst, Est Level III 13:30:25 CDT Jaki Piper Abrams [place], DO, FACP CPT-12223 Ofc Vst, Est Level III 14:04:30 PE MANAGER Jaki Abrams [place], DO, FACP CPT-18784 Ofc Vst, Est Level III 16:00:40 PE MANAGER Jaki Piper Abrams Quinteros, DO, FACP CPT-44320 Ofc Vst, Est Level IV 14:15:56 CDT Jaki Piper Abrams Quinteros, DO, FACP CPT-15510 Ofc Vst, Est Level IV 10:42:53 CDT Jaki Piper Abrams Quinteros, DO, FACP CPT-86795 Ofc Vst, Est Level IV 15:02:49 PE MANAGER Jaki Piper Abrams Quinteros, DO, FACP CPT-50936 Ofc Vst, Est Level IV 16:37:42 CDT Jaki Piper Abrams Quinteros, DO, FACP CPT-78184 Ofc Vst, Est Level IV 10:58:16 CDT Jaki Piper Abrams Quinteros, DO, FACP CPT-91040 Ofc Vst, Est Level III 15:28:22 PE MANAGER Jaki Abrams Quinteros, DO, FACP CPT-41753 Ofc Vst, Est Level IV 11:48:02 PE MANAGER Jaki Abrams Quinteros, DO, FACP CPT-77753 Ofc Vst, Est Level IV 11:26:59 CDT Jaki Abrams Aldair, DO, FACP CPT-36650 Ofc Vst, Est Level IV 10:04:18 CDT Jakifranci Abrams [place], DO, FACP CPT-50511 Ofc Vst, Est Level IV 09:41:14 PE MANAGER Jaki Abrams Quinteros, DO, FACP CPT-42435 Ofc Vst, Est Level IV 09:33:17 PE MANAGER Jaki Abrams Quinteros, DO, FACP CPT-57624 Ofc Vst, Est Level IV 09:48:38 CDT Jaki Piper Abrams [place], DO, FACP CPT-81666 Ofc Vst, Est Level V 10:16:57 CDT Jaki Piper Abrams Quinteros, DO, FACP CPT-39760 Ofc Vst, Est Level IV 11:47:36 CDT Jaki Piper Abrams Quinteros, DO, FACP CPT-63328 Ofc Vst, Est Level V 09:55:01 CDT Jaki Piper Abrams [place], DO, FACP CPT-28585 Ofc Vst, Est Level V 10:27:45 PE MANAGER Jakifranci Abrams [place], DO, FACP CPT-21599 Ofc Vst, Est Level IV 10:39:22 CDT Jaki Piper Abrams [place], DO, FACP CPT-71743 Ofc Vst, Est Level IV 15:07:09 CDT Jaki Piper Abrams [place], DO, FACP CPT-99870 Ofc Vst, Est Level IV 09:14:21 CDT Jaki Piper Phoenixner Jaki Abrams [place], DO, FACP CPT-36642 Ofc Vst, Est Level IV 12:22:58 CDT Jakifranci Abrams [place], DO, FACP CPT-20645 Ofc Vst, Est Level IV 09:33:19 PE MANAGER Jaki Piper Abrams [place], DO, FACP CPT-68686 Ofc Vst, Est Level V 09:07:30 PE MANAGER Jaki Piper Phoenixner Jaki Abrams [place], DO, FACP CPT-29336 Ofc Vst, Est Level IV 12:05:27 PE MANAGER Jaki Phoenixner Jaki S [place], DO, FACP CPT-71365 Ofc Vst, Est Level IV 10:42:39 PE MANAGER Jaki Saldaña Aldair Meadowsi Jose Alberto Quinteros, DO, FACP CPT-82649 Ofc Vst, Est Level III 13:30:14 PE MANAGER Jaki Piper Quinteros Jaki S Aldair, DO, FACP CPT-36867 Ofc Vst, Est Level III 11:09:47 CDT Jaki Quinteros [facility] [place] CPT-99172 Ofc Vst, Est Level III 11:50:59 CDT Jaki Quinteros [facility] [place] CPT-95865 Ofc Vst, Est Level III 15:36:19 PE MANAGER Jaki Piper Quinteros [facility] [place] CPT-34024 Ofc Vst, Est Level III 09:10:14 CDT Jaki Piper Quinteros [facility] [place] CPT-44969 Ofc Vst, Est Level IV 09:34:47 CDT Jaki Piper Quinteros [facility] [place] CPT-72301 Ofc Vst, Est Level III 16:25:58 CDT Jaki Piper Quinteros [facility] [place] CPT-66189 Ofc Vst, Est Level III 15:07:15 CDT Jaki Piper Quinteros [facility] [place] CPT-69410 Ofc Vst, Est Level III 10:49:04 CDT Jaki Piper Quinteros [facility] [place] CPT-25955 Ofc Vst, Est Level III 09:28:26 CDT Jaki Piper Quinteros [facility] [place] CPT-02756 Ofc Vst, Est Level III 09:35:05 PE MANAGER Jaki Quinteros [facility] [place] CPT-79898 Ofc Vst, Est Level II 15:32:59 PE MANAGER Jaki Quinteros [facility] [place] CPT-13055 Ofc Vst, Est Level III 10:46:19 PE MANAGER Jaki Quinteros [facility] [place] CPT-70253 Ofc Vst, Est Level II 09:46:45 CDT Jaki Piper Quinteros [facility] [place] CPT-31099 Ofc Vst, Est Level IV 13:32:33 CDT Jaki Piper Quinteros [facility] [place] CPT-15360 Ofc Vst, Est Level III 17:48:34 CDT Jaki Piper Quinteros [facility] [place] CPT-58742 Ofc Vst, Est Level III 12:54:21 PE MANAGER Jaki Quinteros [facility] [place] CPT-78002 Ofc Vst, Est Level IV 12:51:40 PE MANAGER Jaki Quinteros [facility] [place] CPT-01076 Ofc Vst, Est Level IV 10:12:07 CDT Jaki Quinteros [facility] [place] CPT-48148 Ofc Vst, Est Level IV 16:50:02 CDT Jaki Quinteros [facility] [place] CPT-16686 Ofc Vst, New Level III 11:08:32 PE MANAGER Jaki Quinteros [facility] [place] Procedures Code Procedure Name Date Entry Date Standard Description CPT-71608 Preventive, Est, (40-64) 13:10:19 PE MANAGER CPT-36616 Preventive, Est, (40-64) 14:27:17 CDT CPT-85299 Handling of specimen from office to lab 14:27:17 CDT CPT-57195 Preventive, Est, (40-64) 09:29:06 PE MANAGER CPT-08077 Preventive, Est, (40-64) 13:01:19 CDT
--- OUTSIDE RECORDS SUMMARY | 2017-10-29 09:09 | XMS REPORT | Clinical Summary ---
Author Author User, MAURICE Organization [facility] [place] Address Unknown Phone Unavailable Allergies, Adverse Reactions, [...] MG/2ML SUSP 1 Neb treatment BID BUDESONIDE 19513852441 Active Jaki Quinteros AUGMENTIN 500-125 MG TAB 1 PO BID AMOXICILLIN-POT CLAVULANATE 31630198093 No Longer Active Jaki Quinteros PREDNISONE 10 MG TAB 2 PO at 1 time twice daily for two days. Then 2 PO at one time once daily for two days. Then 1 PO daily for two days 2013 PREDNISONE [id number] No Longer Active Jaki Quinteros AMARYL 1 MG TABS 2 PO BID GLIMEPIRIDE 25815153892 Active Jakifranci Quinteros TOPAMAX 25 MG TABS 1 PO BID TOPIRAMATE 49005895659 No Longer Active Jaki Quinteros LIDOCAINE VISCOUS 2 % SOLN 1 tsp gargled q2hrs prn LIDOCAINE HCL 10231623646 No Longer Active Jaki Quinteros ONE TOUCH ULTRA MINI GLUCOMETER STRIPS Check sugar BID ONE TOUCH ULTRA MINI GLUCOMETER STRIPS No Longer Active Jaki Quinteros PEN NEEDLES 5/16" 31G X 8 MM MISC as directed INSULIN PEN NEEDLE 39989887706 No Longer Active Jaki Quinteros SM MELATONIN 3 MG TABS 1 PO QHS MELATONIN 26018319887 No Longer Active Jaki Quinteros PULMICORT 0.5 MG/2ML SUSP 1 Neb treatment BID BUDESONIDE 03790329753 No Longer Active Jaki Quinteros ONE TOUCH FINEPOINT LANCETS MISC As Directed DX: Diabetes 12/10 LANCETS 45304134185 No Longer Active Jaki Quinteros PEN NEEDLES 16" 31G X 8 MM MISC as directed INSULIN PEN NEEDLE 97397834336 No Longer Active Jaki Quinteros PREDNISONE 20 MG TAB 2 pills at once for 5 days then 1 pill daily for 5 days PREDNISONE 55033305557 No Longer Active Jaki Quinteros SINGULAIR 10 MG TABS 1 PO QHS MONTELUKAST SODIUM 24593491673 Active Jakifranci Quinteros PREDNISONE 20 MG TAB 3 pills daily at once for 2 days, 2 pills daily at once for 2 days, 1 once daily for 2 days PREDNISONE 04749257253 No Longer Active Jaki Quinteros ALBUTEROL SULFATE 0.083 % NEBU SOLN 1 treatment QID prn ALBUTEROL SULFATE 19773387283 Active Jaki Quinteros PREDNISONE 20 MG TAB 3 pills daily at once for 2 days, 2 pills daily at once for 2 days, 1 once daily for 2 days PREDNISONE 55559870335 No Longer Active Jaki Quinteros AUGMENTIN 875-125 MG TAB 1 PO BID AMOXICILLIN-POT CLAVULANATE 80660312236 No Longer Active Jaki Quinteros LATISSE 0.03 % SOLN Apply to eyelashes daily BIMATOPROST 13029212110 No Longer Active Jaki Quinteros TRICOR 48 MG TABS 1 PO daily FENOFIBRATE 76569217015 No Longer Active Jaki Quinteros VICTOZA 18 MG/3ML SOLN 1.8 mg injection daily LIRAGLUTIDE 67603324246 No Longer Active Jaki AMADOR'S NASAL SPRAY (DEXAMETHASONE, GENTAMICIN, SALINE) 2 puffs each nostril TID for [address] AMADOR'Jose Alberto NASAL SPRAY ( DEXAMETHASONE, GENTAMICIN, SALINE) No Longer Active Liliane Kenny AUGMENTIN 875-125 MG TAB 1 PO BID AMOXICILLIN-POT CLAVULANATE 92793721693 No Longer Active Liliane Kenny PROGESTERONE CREAM As directed PROGESTERONE CREAM No Longer Active Jaki Quinteros PEPCID 20 MG TAB 1 PO Qam FAMOTIDINE 02306225646 No Longer Active Jaki Quinteros GLUCOPHAGE 1000 MG TABS 1 PO BID METFORMIN HCL 50298833996 Active Jaki Quinteros COZAAR 100 MG TABS 1 PO daily LOSARTAN POTASSIUM 43272645363 Active Jaki Quinteros BACTROBAN 2 % OINTMENT apply to affected areas BID for 7 days MUPIROCIN 56213020387 No Longer Active Jaki Quinteros BACTRIM DS 800-160 MG TAB 1 PO BID TRIMETHOPRIM- SULFAMETHOXAZOLE 28617270416 No Longer Active Jaki Quinteros ACTICIN 5 % CREA as directed PERMETHRIN 50815975419 No Longer Active Jaki Quinteros PREMPRO 0.3-1.5 MG TABS 1 PO daily CONJ ESTROG- MEDROXYPROGEST DIANE 33933044523 No Longer Active Jaki Quinteros CLARITIN 10 MG TAB 1 PO daily LORATADINE 36603450867 Active Jaki Quinteros ASCENSIA CONTOUR TEST STRP check blood sugar twice daily DX: Diabetes 07/09 GLUCOSE BLOOD 37137970458 No Longer Active Jaki Quinteros ONE TOUCH ULTRA GLUCOMETER As Directed DX: Diabetes ONE TOUCH ULTRA GLUCOMETER No Longer Active Jaki Quinteros DHEA 25 MG TABS 1 po daily PRASTERONE (DHEA) 62096700869 No Longer Active Jaki Quinteros VITAMIN E 400 UNIT CAPS 1 PO daily VITAMIN E 08262774563 No Longer Active Jaki Quinteros FLONASE 50 MCG/DOSE INHALANT 1 puff each nostril BID prn rare use due to increased hoarsness FLONASE 50 MCG/DOSE INHALANT 66458373184 No Longer Active Jaki Quinteros MICRONASE 1.25 MG TABS 1 PO BID (on hold as of 11/19/08 due to lifestyle change ) GLYBURIDE 53824772849 No Longer Active Jaki Quinteros FISH OIL 1000 MG CAPS 3 PO daily OMEGA-3 FATTY ACIDS 56606095124 Active Jaki Quinteros METFORMIN HCL 1000 MG TABS 1 PO BID METFORMIN HCL 09999226013 No Longer Active Jaki AMADOR'S NASAL SPRAY (DEXAMETHASONE, GENTAMICIN, SALINE) 2 puffs each nostril TID for [address] VALDIVIA NASAL SPRAY ( DEXAMETHASONE, GENTAMICIN, SALINE) No Longer Active Jaki Piper Quinteros TESSALON 200 MG CAPS 1 PO TID prn cough BENZONATATE 76134251625 No Longer Active Jaki Piper Quinteros ROBITUSSIN A-C 10-100 MG/5ML SYRUP 1 teaspoon PO Q 4-6 hr prn ROBITUSSIN A-C 10-100 MG/5ML SYRUP 68467497958 No Longer Active Jaki Piper Quinteros LEVAQUIN 500 MG TAB 1 PO QD LEVOFLOXACIN 46957957496 No Longer Active Jaki Piper Quinteros CORICIDIN HBP FLU 15-500-2 MG TABS as directed DM- APAP-CPM 80198031015 No Longer Active Jaki Piper Quinteros LOVASTATIN 10 MG TABS 1 po daily LOVASTATIN 95909639688 Active Jaki Piper Quinteros VITAMIN D 400 UNIT CAPS 1 PO daily CHOLECALCIFEROL 65905032199 Active Jaki Piper Quinteros MULTIVITAMINS TABS 1 PO QD MULTIPLE VITAMIN 51011555647 Active Jaki Piper Quinteros CLARITIN 10 MG TAB 1 PO daily LORATADINE 71898517494 No Longer Active Jaki Piper Quinteros PRILOSEC 20 MG CPDR 1 PO Qhs OMEPRAZOLE 68396235246 Active Jaki Piper Quinteros BYETTA 10 MCG PEN 10 MCG/0.04ML SOLN 1 injection twice daily 30min before meals EXENATIDE 67679638583 No Longer Active Jaki Piper Quinteros ADVAIR DISKUS 250-50 MCG/DOSE MISC 1 puff BID (On hold 09/11/07 due to hoarseness) FLUTICASONE-SALMETEROL 04248180092 No Longer Active Jakifranci Saldaña Quinteros ATROVENT SOLN 1 treatment Q6hrs prn wheezing IPRATROPIUM BROMIDE SOLN 83607318333 No Longer Active Jaki Quinteros HOLLIE 180 MG TABS 1 PO QD FEXOFENADINE HCL 59254418343 No Longer Active Jaki Quinteros ADVAIR DISKUS 100-50 MCG/DOSE MISC 1 puff BID FLUTICASONE-SALMETEROL 47220210351 No Longer Active Liliane Kenny ROBITUSSIN A-C 10-100 MG/5ML SYRUP 5cc PO Q 4-6 hr prn ROBITUSSIN A-C 10-100 MG/5ML SYRUP 64885623360 No Longer Active Jaki Quinteros PREDNISONE 20 MG TAB 3 PO daily for 2 days, 2 PO daily for 2 days, 1 PO daily for 3 days PREDNISONE 97688459870 No Longer Active Jaki AMADOR'S NASAL SPRAY (DEXAMETHASONE, GENTAMICIN, SALINE) 2 puffs each nostril TID for [address] AMADOR'Jose Alberto NASAL SPRAY ( DEXAMETHASONE, GENTAMICIN, SALINE) No Longer Active Jaki Quinteros LEVAQUIN 500 MG TAB 1 PO QD for 7 days LEVOFLOXACIN 34648405504 No Longer Active Jaki Quinteros ALBUTEROL SULFATE 0.083 % NEBU SOLN 1 breathing treatment TID prn wheezing ALBUTEROL SULFATE 19511616982 No Longer Active Jaki Quinteros AUGMENTIN 875-125 MG TAB 1 PO BID for 10 days AMOXICILLIN-POT CLAVULANATE 31706245780 No Longer Active Jaki Quinteros EFFEXOR XR 150 MG CP24 1 PO daily VENLAFAXINE HCL 91405506355 Active Jaki Piper Quinteros AUGMENTIN 875-125 MG TAB 1 PO BID AMOXICILLIN-POT CLAVULANATE 73180290306 No Longer Active Jaki AMADOR'Jose Alberto NASAL SPRAY (DEXAMETHASONE, GENTAMICIN, SALINE) 2 puffs each nostril TID for [address] VALDIVIA NASAL SPRAY ( DEXAMETHASONE, GENTAMICIN, SALINE) No Longer Active Jaki Quinteros NAPROXEN 500 MG TAB 1 PO BID for 5 days after taking Prednisone NAPROXEN 75729069657 No Longer Active Jaki Quinteros PREDNISONE 20 MG TAB 3 PO daily for 1 day, then 2 PO daily for 2 days PREDNISONE 41350834777 No Longer Active Jaki Quinteros EFFEXOR XR 37.5 MG CP24 1 PO daily for 7 days then change to 75mg tablets VENLAFAXINE HCL 41194101565 No Longer Active Liliane Kenny XANAX 0.25 MG TABS 1/2 to 1 pill every 6hrs prn ALPRAZOLAM 42028065306 Active Liliane Kenny PHENTERMINE HCL 37.5 MG CAPS 1 PO Daily Dx: Wt loss PHENTERMINE HCL 32276913917 No Longer Active Jaki Quinteros MIDOL CRAMP FORMULA MAX ST 200 MG TABS 2 PO QHS prn IBUPROFEN 49309028623 No Longer Active Jaki Quinteros LEXAPRO 10 MG TABS 1 PO daily ESCITALOPRAM OXALATE 83086486445 No Longer Active Jaki Quinteros ORTHO TRI-CYCLEN (28) 0.035 MG TABS as directed. Start Monday05/15/05 even if on period NORGESTIMATE-ETHINYL ESTRADIOL 71838067342 No Longer Active Jaki Quinteros AMOXICILLIN 875 MG TABS 1 po BID x 7 days AMOXICILLIN 89399168346 No Longer Active Liliane Kenny PHENTERMINE HCL 37.5 MG CAPS 1 daily PHENTERMINE HCL 15208798703 No Longer Active Jaki Quinteros AMOXIL 500 MG CAPS 1 po bid AMOXICILLIN 91984639246 No Longer Active Jaki Piper Quinteros LEVAQUIN 500 MG TAB 1 PO QD LEVOFLOXACIN 05436799030 No Longer Active Jaki Piper Quinteros NEXIUM 40 MG CPDR 1 po qd ESOMEPRAZOLE MAGNESIUM 67073985569 No Longer Active Jaki Piper Quinteros MAXZIDE-25 25-37.5 MG TABS 1 po daily TRIAMTERENE-HCTZ 14694837037 Active Jaki Piper Quinteros DIOVAN 80 MG [...] mL/min/1.73m2 Encounters Code Encounter Date Provider Facility CPT-30652 Ofc Vst, Est Level III 16:17:43 PROCESSING INSPECTOR Jaki Quinteros DO, FACP CPT-74123 Ofc Vst, Est Level III 14:23:49 CDT Jaki Quinteros DO, FACP CPT-50384 Ofc Vst, Est Level IV 17:17:38 CDT Jaki Quinteros DO, FACP CPT-97978 Ofc Vst, Est Level IV 14:37:31 CDT Jaki Quinteros DO, FACP CPT-19431 Ofc Vst, Est Level III 14:52:42 CDT Jaki Abrams [place], DO, FACP CPT-53186 Ofc Vst, Est Level III 13:19:39 CDT Jakifranci Abrams [place], DO, FACP CPT-69579 Ofc Vst, Est Level III 15:05:35 CDT Jakifranci [facility] CPT-51304 Ofc Vst, Est Level III 13:30:25 CDT Jaki Piper Abrams [place]air, DO, FACP CPT-24020 Ofc Vst, Est Level III 14:04:30 PROCESSING INSPECTOR Jaki Abrams [place], DO, FACP CPT-50126 Ofc Vst, Est Level III 16:00:40 PROCESSING INSPECTOR Jaki Abrams [place]air, DO, FACP CPT-76730 Ofc Vst, Est Level IV 14:15:56 CDT Jakifranci Abrams [place], DO, FACP CPT-19832 Ofc Vst, Est Level IV 10:42:53 CDT Jaki Abrams [place], DO, FACP CPT-33033 Ofc Vst, Est Level IV 15:02:49 PROCESSING INSPECTOR Jaki Abrams [place], DO, FACP CPT-76649 Ofc Vst, Est Level IV 16:37:42 CDT Jakifranci Abrams [place], DO, FACP CPT-94365 Ofc Vst, Est Level IV 10:58:16 CDT Jakifranci Abrams [place], DO, FACP CPT-48019 Ofc Vst, Est Level III 15:28:22 PROCESSING INSPECTOR Jaki Abrams [place], DO, FACP CPT-68217 Ofc Vst, Est Level IV 11:48:02 PROCESSING INSPECTOR Jaki Abrams [place], DO, FACP CPT-53641 Ofc Vst, Est Level IV 11:26:59 CDT Jaki Piper Abrams Quinteros, DO, FACP CPT-90525 Ofc Vst, Est Level IV 10:04:18 CDT Jaki Piper Abrams Quinteros, DO, FACP CPT-07218 Ofc Vst, Est Level IV 09:41:14 PROCESSING INSPECTOR Jakifranci Abrams Quinteros, DO, FACP CPT-78087 Ofc Vst, Est Level IV 09:33:17 PROCESSING INSPECTOR Jaki Abrams [place], DO, FACP CPT-05881 Ofc Vst, Est Level IV 09:48:38 CDT Jaki Piper Abrams [place], DO, FACP CPT-61100 Ofc Vst, Est Level V 10:16:57 CDT Jaki Piper Abrams [place], DO, FACP CPT-33531 Ofc Vst, Est Level IV 11:47:36 CDT Jaki Piper Abrams [place], DO, FACP CPT-39523 Ofc Vst, Est Level V 09:55:01 CDT Jakifranci Abrams [place], DO, FACP CPT-53207 Ofc Vst, Est Level V 10:27:45 PROCESSING INSPECTOR Jakifranci Abarms Aldair, DO, FACP CPT-27532 Ofc Vst, Est Level IV 10:39:22 CDT Jakifranci Abrams [place], DO, FACP CPT-49653 Ofc Vst, Est Level IV 15:07:09 CDT Jaki Piper Abrams [place], DO, FACP CPT-76427 Ofc Vst, Est Level IV 09:14:21 CDT Jaki Piper Abrams [place], DO, FACP CPT-91398 Ofc Vst, Est Level IV 12:22:58 CDT Jaki Piper Aldair Pollack S Aldair, DO, FACP CPT-01244 Ofc Vst, Est Level IV 09:33:19 PROCESSING INSPECTOR Jaki Piper Aldair Pollakc S Aldair, DO, FACP CPT-49024 Ofc Vst, Est Level V 09:07:30 PROCESSING INSPECTOR Jaki Piper Aldair Quinteros, DO, FACP CPT-65561 Ofc Vst, Est Level IV 12:05:27 PROCESSING INSPECTOR Jaki Piper Aldair Meadowsi S Aldair, DO, FACP CPT-56762 Ofc Vst, Est Level IV 10:42:39 PROCESSING INSPECTOR Jaki Piper Aldair Meadowsi S Aldair, DO, FACP CPT-00048 Ofc Vst, Est Level III 13:30:14 PROCESSING INSPECTOR Jaki Piper Aldair Quinteros, DO, FACP CPT-01657 Ofc Vst, Est Level III 11:09:47 CDT Jakifranci Quinteros [facility] [place] CPT-43754 Ofc Vst, Est Level III 11:50:59 CDT Jaki Quinteros [facility] [place] CPT-61100 Ofc Vst, Est Level III 15:36:19 PROCESSING INSPECTOR Jaki Quinteros [facility] [place] CPT-93784 Ofc Vst, Est Level III 09:10:14 CDT Jakifranci Quinteros [facility] [place] CPT-85380 Ofc Vst, Est Level IV 09:34:47 CDT Jaki Quinteros [facility] [place] CPT-26765 Ofc Vst, Est Level III 16:25:58 CDT Jaki Quinteros [facility] [place] CPT-76186 Ofc Vst, Est Level III 15:07:15 CDT Jaki Quinteros [facility] [place] CPT-85636 Ofc Vst, Est Level III 10:49:04 CDT Jakifranci Quinteros [facility] [place] CPT-50822 Ofc Vst, Est Level III 09:28:26 CDT Jaki Pipergabriel Quinteros [facility] [place] CPT-31541 Ofc Vst, Est Level III 09:35:05 PROCESSING INSPECTOR Jaki Pipergabriel Quinteros [facility] [place] CPT-86616 Ofc Vst, Est Level II 15:32:59 PROCESSING INSPECTOR Jaki Piper Quinteros [facility] [place] CPT-16192 Ofc Vst, Est Level III 10:46:19 PROCESSING INSPECTOR Jaki Piper Quinteros [facility] [place] CPT-13477 Ofc Vst, Est Level II 09:46:45 CDT Jaki Piper Quinteros [facility] [place] CPT-31630 Ofc Vst, Est Level IV 13:32:33 CDT Jaki Piper Quinteros [facility] [place] CPT-67039 Ofc Vst, Est Level III 17:48:34 CDT Jaki Piper Aldair [facility] [place] CPT-74783 Ofc Vst, Est Level III 12:54:21 PROCESSING INSPECTOR Jaki Pipergabriel Quinteros [facility] [place] CPT-98534 Ofc Vst, Est Level IV 12:51:40 PROCESSING INSPECTOR Jakifranci Quinteros [facility] [place] CPT-43325 Ofc Vst, Est Level IV 10:12:07 CDT Jaki Piper Quinteros [facility] [place] CPT-30082 Ofc Vst, Est Level IV 16:50:02 CDT Jaki Piper Quinteros [facility] [place] CPT-14196 Ofc Vst, New Level III 11:08:32 PROCESSING INSPECTOR Jaki Piper Quinteros [facility] [place] Procedures Code Procedure Name Date Entry Date Standard Description CPT-46910 Preventive, Est, (40-64) 13:10:19 PROCESSING INSPECTOR CPT-11829 Preventive, Est, (40-64) 14:27:17 CDT CPT-39985 Handling of specimen from office to lab 14:27:17 CDT CPT-72337 Preventive, Est, (40-64) 09:29:06 PROCESSING INSPECTOR CPT-08403 Preventive, Est, (40-64) 13:01:19 CDT
--- OUTSIDE RECORDS SUMMARY | 2017-10-29 09:10 | XMS REPORT | Clinical Summary ---
Author Author User, MAURICE Organization [facility] [place] Address Unknown Phone Unavailable Allergies, Adverse Reactions, [...] Generic Name NDC Status Provider Patient Instruction SINGULAIR 10 MG TABS 1 PO DAILY MONTELUKAST SODIUM [id number] Active Liliane Kenny PULMICORT 0.5 MG/2ML SUSP 1 Neb treatment BID BUDESONIDE 12803102404 No Longer Active Jaki Quinteros SINGULAIR 10 MG TABS 1 PO QHS MONTELUKAST SODIUM 43795305214 No Longer Active Jaki Piper Quinteros NEXIUM 20 MG CPDR 1 po daily ESOMEPRAZOLE MAGNESIUM 96102424870 Active Jaki Piper Quinteros AMARYL 2 MG TAB 2 PO BID GLIMEPIRIDE 76135334110 Active Jaki Piper Quinteros AUGMENTIN 500-125 MG TAB 1 PO BID AMOXICILLIN-POT CLAVULANATE 93127321613 No Longer Active Jaki Piper Quinteros PREDNISONE 10 MG TAB 2 PO at 1 time twice daily for two days. Then 2 PO at one time once daily for two days. Then 1 PO daily for two days 2013 PREDNISONE 08242527151 No Longer Active Jaki Piper Quinteros TOPAMAX 25 MG TABS 1 PO BID TOPIRAMATE 53090927170 No Longer Active Jaki Piper Quinteros LIDOCAINE VISCOUS 2 % SOLN 1 tsp gargled q2hrs prn LIDOCAINE HCL 60442181061 No Longer Active Jakifranci Quinteros ONE TOUCH ULTRA MINI GLUCOMETER STRIPS Check sugar BID ONE TOUCH ULTRA MINI GLUCOMETER STRIPS No Longer Active Jakifranci Quinteros PEN NEEDLES 5/16" 31G X 8 MM MISC as directed INSULIN PEN NEEDLE 45593125274 No Longer Active Jakifranci Quinteros SM MELATONIN 3 MG TABS 1 PO QHS MELATONIN 00868312068 No Longer Active Jaki Piper Quinteros PULMICORT 0.5 MG/2ML SUSP 1 Neb treatment BID BUDESONIDE 44309766105 No Longer Active Jaki Piper Quinteros ONE TOUCH FINEPOINT LANCETS MISC As Directed DX: Diabetes 12/10 LANCETS 10435233066 No Longer Active Jaki Piper Quinteros PEN NEEDLES 5/16" 31G X 8 MM MISC as directed INSULIN PEN NEEDLE 90415349955 No Longer Active Jaki Piper Quinteros PREDNISONE 20 MG TAB 2 pills at once for 5 days then 1 pill daily for 5 days PREDNISONE 40191217491 No Longer Active Jaki Quinteros PREDNISONE 20 MG TAB 3 pills daily at once for 2 days, 2 pills daily at once for 2 days, 1 once daily for 2 days PREDNISONE 44715262824 No Longer Active Jaki Quinteros ALBUTEROL SULFATE 0.083 % NEBU SOLN 1 treatment QID prn ALBUTEROL SULFATE 47557606909 Active Jaki Quinteros PREDNISONE 20 MG TAB 3 pills daily at once for 2 days, 2 pills daily at once for 2 days, 1 once daily for 2 days PREDNISONE 15821905772 No Longer Active Jaki Quinteros AUGMENTIN 875-125 MG TAB 1 PO BID AMOXICILLIN-POT CLAVULANATE 53936745244 No Longer Active Jaki Quinteros LATISSE 0.03 % SOLN Apply to eyelashes daily BIMATOPROST 76743521032 No Longer Active Jaki Quinteros TRICOR 48 MG TABS 1 PO daily FENOFIBRATE 10263314054 No Longer Active Jaki Quinteros VICTOZA 18 MG/3ML SOLN 1.8 mg injection daily LIRAGLUTIDE 85768587869 No Longer Active Jaki AMADOR'Jose Alberto NASAL SPRAY (DEXAMETHASONE, GENTAMICIN, SALINE) 2 puffs each nostril TID for [address] VALDIVIA NASAL SPRAY ( DEXAMETHASONE, GENTAMICIN, SALINE) No Longer Active Liliane Kenny AUGMENTIN 875-125 MG TAB 1 PO BID AMOXICILLIN-POT CLAVULANATE 53516618935 No Longer Active Liliane Kenny PROGESTERONE CREAM As directed PROGESTERONE CREAM No Longer Active Jaki Quinteros PEPCID 20 MG TAB 1 PO Qam FAMOTIDINE 11357522990 No Longer Active Jaki Quinteros GLUCOPHAGE 1000 MG TABS 1 PO BID METFORMIN HCL 57713136793 Active Jakifranci Quinteros COZAAR 100 MG TABS 1 PO daily LOSARTAN POTASSIUM 05330638110 Active Jaki Quinteros BACTROBAN 2 % OINTMENT apply to affected areas BID for 7 days MUPIROCIN 18486236457 No Longer Active Jaki Quinteros BACTRIM DS 800-160 MG TAB 1 PO BID TRIMETHOPRIM- SULFAMETHOXAZOLE 59197954526 No Longer Active Jaki Quinteros ACTICIN 5 % CREA as directed PERMETHRIN 95660049264 No Longer Active Jaki Quinteros PREMPRO 0.3-1.5 MG TABS 1 PO daily CONJ ESTROG- MEDROXYPROGEST DIANE 06292031558 No Longer Active Jaki Quinteros CLARITIN 10 MG TAB 1 PO daily LORATADINE 12258259400 Active Jaki Quinteros ASCENSIA CONTOUR TEST STRP check blood sugar twice daily DX: Diabetes 07/09 GLUCOSE BLOOD 18317783996 No Longer Active Jaki Quinteros ONE TOUCH ULTRA GLUCOMETER As Directed DX: Diabetes ONE TOUCH ULTRA GLUCOMETER No Longer Active Jaki Quinteros DHEA 25 MG TABS 1 po daily PRASTERONE (DHEA) 37755743361 No Longer Active Jaki Quinteros VITAMIN E 400 UNIT CAPS 1 PO daily VITAMIN E 14299349640 No Longer Active Jaki Quinteros FLONASE 50 MCG/DOSE INHALANT 1 puff each nostril BID prn rare use due to increased hoarsness FLONASE 50 MCG/DOSE INHALANT 66786028282 No Longer Active Jaki Quinteros MICRONASE 1.25 MG TABS 1 PO BID (on hold as of 11/19/08 due to lifestyle change ) GLYBURIDE 21024438249 No Longer Active Jaki Piper Quinteros FISH OIL 1000 MG CAPS 3 PO daily OMEGA-3 FATTY ACIDS 14866078611 Active Jaki Piper Quinteros METFORMIN HCL 1000 MG TABS 1 PO BID METFORMIN HCL 79780492427 No Longer Active Jaki Piper AMADOR'Jose Alberto NASAL SPRAY (DEXAMETHASONE, GENTAMICIN, SALINE) 2 puffs each nostril TID for [address] VALDIVIA NASAL SPRAY ( DEXAMETHASONE, GENTAMICIN, SALINE) No Longer Active Jakifranci Quinteros TESSALON 200 MG CAPS 1 PO TID prn cough BENZONATATE 49072570614 No Longer Active Jaki Piper Quinteros ROBITUSSIN A-C 10-100 MG/5ML SYRUP 1 teaspoon PO Q 4-6 hr prn ROBITUSSIN A-C 10-100 MG/5ML SYRUP 19056466186 No Longer Active Jaki Piper Quinteros LEVAQUIN 500 MG TAB 1 PO QD LEVOFLOXACIN 27168972857 No Longer Active Jaki Piper Quinteros CORICIDIN HBP FLU 15-500-2 MG TABS as directed DM- APAP-CPM 81890328173 No Longer Active Jaki Piper Quinteros LOVASTATIN 10 MG TABS 1 po daily LOVASTATIN 77565541063 Active Jaki Piper Quinteros VITAMIN D 400 UNIT CAPS 1 PO daily CHOLECALCIFEROL 93072627996 Active Jaki Piper Quinteros MULTIVITAMINS TABS 1 PO QD MULTIPLE VITAMIN 71551607597 Active Jaki Piper Quinteros CLARITIN 10 MG TAB 1 PO daily LORATADINE 35283231363 No Longer Active Jaki Piper Quinteros PRILOSEC 20 MG CPDR 1 PO Qhs OMEPRAZOLE 36722269524 No Longer Active Jaki Piper Quinteros BYETTA 10 MCG PEN 10 MCG/0.04ML SOLN 1 injection twice daily 30min before meals EXENATIDE 33728560143 No Longer Active Jaki Quinteros ADVAIR DISKUS 250-50 MCG/DOSE MISC 1 puff BID (On hold 09/11/07 due to hoarseness) FLUTICASONE-SALMETEROL 54726159847 No Longer Active Jaki Quinteros ATROVENT SOLN 1 treatment Q6hrs prn wheezing IPRATROPIUM BROMIDE SOLN 25573709365 No Longer Active Jaki Quinteros HOLLIE 180 MG TABS 1 PO QD FEXOFENADINE HCL 05001384554 No Longer Active Jaki Quinteros ADVAIR DISKUS 100-50 MCG/DOSE MISC 1 puff BID FLUTICASONE-SALMETEROL 28545356334 No Longer Active Liliane Kenny ROBITUSSIN A-C 10-100 MG/5ML SYRUP 5cc PO Q 4-6 hr prn ROBITUSSIN A-C 10-100 MG/5ML SYRUP 51148677109 No Longer Active Jaki Quinteros PREDNISONE 20 MG TAB 3 PO daily for 2 days, 2 PO daily for 2 days, 1 PO daily for 3 days PREDNISONE 95982108183 No Longer Active Jaki VALDIVIA NASAL SPRAY (DEXAMETHASONE, GENTAMICIN, SALINE) 2 puffs each nostril TID for [address] VALDIVIA NASAL SPRAY ( DEXAMETHASONE, GENTAMICIN, SALINE) No Longer Active Jaki Quinteros LEVAQUIN 500 MG TAB 1 PO QD for 7 days LEVOFLOXACIN 13688769498 No Longer Active Jaki Quinteros ALBUTEROL SULFATE 0.083 % NEBU SOLN 1 breathing treatment TID prn wheezing ALBUTEROL SULFATE 48656824831 No Longer Active Jaki Quinteros AUGMENTIN 875-125 MG TAB 1 PO BID for 10 days AMOXICILLIN-POT CLAVULANATE 36804301417 No Longer Active Jaki Quinteros EFFEXOR XR 150 MG CP24 1 PO daily VENLAFAXINE HCL 57004370115 Active Jaki Quinteros AUGMENTIN 875-125 MG TAB 1 PO BID AMOXICILLIN-POT CLAVULANATE 82054321099 No Longer Active Jaki AMADOR'Jose Alberto NASAL SPRAY (DEXAMETHASONE, GENTAMICIN, SALINE) 2 puffs each nostril TID for [address] AMADOR'Jose Alberto NASAL SPRAY ( DEXAMETHASONE, GENTAMICIN, SALINE) No Longer Active Jaki Quinteros NAPROXEN 500 MG TAB 1 PO BID for 5 days after taking Prednisone NAPROXEN 75330656071 No Longer Active Jaki Quinteros PREDNISONE 20 MG TAB 3 PO daily for 1 day, then 2 PO daily for 2 days PREDNISONE 34329117242 No Longer Active Jaki Quinteros EFFEXOR XR 37.5 MG CP24 1 PO daily for 7 days then change to 75mg tablets VENLAFAXINE HCL 14470182519 No Longer Active Liliane Kenny XANAX 0.25 MG TABS 1/2 to 1 pill every 6hrs prn ALPRAZOLAM 31894202013 Active Jaki Quinteros PHENTERMINE HCL 37.5 MG CAPS 1 PO Daily Dx: Wt loss PHENTERMINE HCL 40897741966 No Longer Active Jaki Quinteros MIDOL CRAMP FORMULA MAX ST 200 MG TABS 2 PO QHS prn IBUPROFEN 95168024951 No Longer Active Jaki Quinteros LEXAPRO 10 MG TABS 1 PO daily ESCITALOPRAM OXALATE 79303083419 No Longer Active Jaki Quinteros ORTHO TRI-CYCLEN (28) 0.035 MG TABS as directed. Start Monday05/15/05 even if on period NORGESTIMATE-ETHINYL ESTRADIOL 38591014003 No Longer Active Jaki Quinteros AMOXICILLIN 875 MG TABS 1 po BID x 7 days AMOXICILLIN 85263636656 No Longer Active Liliane Kenny PHENTERMINE HCL 37.5 MG CAPS 1 daily PHENTERMINE HCL 08951068862 No Longer Active Jaki Piper Quinteros AMOXIL 500 MG CAPS 1 po bid AMOXICILLIN 39478233288 No Longer Active Jaki Piper Quinteros LEVAQUIN 500 MG TAB 1 PO QD LEVOFLOXACIN 93362230279 No Longer Active Jaki Piper Quinteros NEXIUM 40 MG CPDR 1 po qd ESOMEPRAZOLE MAGNESIUM 58760996804 No Longer Active Jaki Piper Aldair MAXZIDE-25 25-37.5 MG TABS 1 po daily TRIAMTERENE-HCTZ 54858471603 Active Jaki Piper Quinteros DIOVAN 80 MG [...] E&M - 3141-9 244 [lb_av] Weight Measured Diagnostic [...] U/L Encounters Code Encounter Date Provider Facility CPT-61312 Ofc Vst, Est Level III 12:25:04 CDT Jaki Abrams Quinteros, DO, FACP CPT-72011 Ofc Vst, Est Level III 16:17:43 [employer] Jaki Abrams Quinteros, DO, FACP CPT-20828 Ofc Vst, Est Level III 14:23:49 CDT Jakifranci Abrams Aldair, DO, FACP CPT-45963 Ofc Vst, Est Level IV 17:17:38 CDT Jakifranci Abrams Aldair, DO, FACP CPT-58011 Ofc Vst, Est Level IV 14:37:31 CDT Jaki Piper Abrams Aldair, DO, FACP CPT-38765 Ofc Vst, Est Level III 14:52:42 CDT Jakifranci Abrams Aldair, DO, FACP CPT-65979 Ofc Vst, Est Level III 13:19:39 CDT Jakifranci Abrams Quinteros, DO, FACP CPT-27034 Ofc Vst, Est Level III 15:05:35 CDT Jakifranci [facility] CPT-23012 Ofc Vst, Est Level III 13:30:25 CDT Jakifranci Abrams Aldair, DO, FACP CPT-09211 Ofc Vst, Est Level III 14:04:30 [employer] Jaki Abrams Aldair, DO, FACP CPT-67991 Ofc Vst, Est Level III 16:00:40 [employer] Jaki Abrams Aldair, DO, FACP CPT-39496 Ofc Vst, Est Level IV 14:15:56 CDT Jaki Abrams Aldair, DO, FACP CPT-76819 Ofc Vst, Est Level IV 10:42:53 CDT Jaki Piper Abrams Aldair, DO, FACP CPT-64221 Ofc Vst, Est Level IV 15:02:49 [employer]PER[employer] Jaki Abrams Quinteros, DO, FACP CPT-14279 Ofc Vst, Est Level IV 16:37:42 CDT Jaki Piper Abrams Quinteros, DO, FACP CPT-73658 Ofc Vst, Est Level IV 10:58:16 CDT Jaki Piper Abrams Quinteros, DO, FACP CPT-26233 Ofc Vst, Est Level III 15:28:22 [employer]PER[employer] Jaki Abrams Quinteros, DO, FACP CPT-93676 Ofc Vst, Est Level IV 11:48:02 [employer]PER[employer] Jaki Abrams Quinteros, DO, FACP CPT-30132 Ofc Vst, Est Level IV 11:26:59 CDT Jakifranci Abrams Quinteros, DO, FACP CPT-99842 Ofc Vst, Est Level IV 10:04:18 CDT Jakifranci Abrams Quinteros, DO, FACP CPT-02814 Ofc Vst, Est Level IV 09:41:14 [employer]PER[employer] Jaki Abrams Quinteros, DO, FACP CPT-62670 Ofc Vst, Est Level IV 09:33:17 [employer] SUPER[employer] Jaki Abrams Quinteros, DO, FACP CPT-84222 Ofc Vst, Est Level IV 09:48:38 CDT Jakifranci Abrams Quinteros, DO, FACP CPT-64431 Ofc Vst, Est Level V 10:16:57 CDT Jaki Piper Abrams Quinteros, DO, FACP CPT-22188 Ofc Vst, Est Level IV 11:47:36 CDT Jaki Piper Abrams Aldair, DO, FACP CPT-93254 Ofc Vst, Est Level V 09:55:01 CDT Jakifranci Abrams Quinteros, DO, FACP CPT-96434 Ofc Vst, Est Level V 10:27:45 [employer]PER[employer] Jaki Piper Pollack S Quinteros, DO, FACP CPT-02704 Ofc Vst, Est Level IV 10:39:22 CDT Jaki Piper Abrams Quinteros, DO, FACP CPT-40156 Ofc Vst, Est Level IV 15:07:09 CDT Jaki Piper Pollack S Quinteros, DO, FACP CPT-60840 Ofc Vst, Est Level IV 09:14:21 CDT Jaki Piper Pollack S Quinteros, DO, FACP CPT-69989 Ofc Vst, Est Level IV 12:22:58 CDT Jaki Piper Abrams Aldair, DO, FACP CPT-80310 Ofc Vst, Est Level IV 09:33:19 HOU[employer] SUPER[employer] Jaki Pollack S Quinteros, DO, FACP CPT-69319 Ofc Vst, Est Level V 09:07:30 [employer] CLE[employer] SUPER[employer] Jaki Piper Pollack S Quinteros, DO, FACP CPT-77725 Ofc Vst, Est Level IV 12:05:27 [employer] SUPER[employer] Jaki Abrams Aldair, DO, FACP CPT-21176 Ofc Vst, Est Level IV 10:42:39 HOU[employer] SUPER[employer] Jaki Abrams Quinteros, DO, FACP CPT-37149 Ofc Vst, Est Level III 13:30:14 [employer] SUPER[employer] Jaki Piper [place]ner Jaki S Quinteros, DO, FACP CPT-16308 Ofc Vst, Est Level III 11:09:47 CDT Jaki Quinteros [facility] [place] CPT-21923 Ofc Vst, Est Level III 11:50:59 CDT Jaki Piper Quinteros [facility] [place] CPT-03220 Ofc Vst, Est Level III 15:36:19 HOU[employer]PER[employer] Jaki Quinteros [facility] [place] CPT-86777 Ofc Vst, Est Level III 09:10:14 CDT Jaki Piper Quinteros [facility] [place] CPT-65668 Ofc Vst, Est Level IV 09:34:47 CDT Jaki Piper Quinteros [facility] [place] CPT-38669 Ofc Vst, Est Level III 16:25:58 CDT Jaki Piper Quinteros [facility] [place] CPT-60428 Ofc Vst, Est Level III 15:07:15 CDT Jaki Piper Quinteros [facility] [place] CPT-70920 Ofc Vst, Est Level III 10:49:04 CDT Jaki Piper Quinteros [facility] [place] CPT-07652 Ofc Vst, Est Level III 09:28:26 CDT Jaki Piper Quinteros [facility] [place] CPT-48474 Ofc Vst, Est Level III 09:35:05 [employer] SUPER[employer] Jaki Quinteros [facility] [place] CPT-55671 Ofc Vst, Est Level II 15:32:59 HOU[employer] CLE[employer] SUPER[employer] Jaki Quinteros [facility] [place] CPT-49288 Ofc Vst, Est Level III 10:46:19 HOU[employer] CLE[employer] SUPER[employer] Jaki Quinteros [facility] [place] CPT-30620 Ofc Vst, Est Level II 09:46:45 CDT Jaki Piper Quinteros [facility] [place] CPT-66821 Ofc Vst, Est Level IV 13:32:33 CDT Jaki Piper Quinteros [facility] [place] CPT-45439 Ofc Vst, Est Level III 17:48:34 CDT Jaki Piper Quinteros [facility] [place] CPT-92586 Ofc Vst, Est Level III 12:54:21 HOU[employer] CLE[employer] SUPER[employer] Jaki Quinteros [facility] [place] CPT-68926 Ofc Vst, Est Level IV 12:51:40 HOU[employer] SUPER[employer] Jaki Quinteros [facility] [place] CPT-69487 Ofc Vst, Est Level IV 10:12:07 CDT Jaki Quinteros [facility] [place] CPT-96349 Ofc Vst, Est Level IV 16:50:02 CDT Jaki Quinteros [facility] [place] CPT-54048 Ofc Vst, New Level III 11:08:32 [employer]PER[employer] Jaki Quinteros [facility] [place] Procedures Code Procedure Name Date Entry Date Standard Description CPT-76345 Preventive, Est, (40-64) 13:10:19 [employer] CPT-24784 Preventive, Est, (40-64) 14:27:17 CDT CPT-99336 Handling of specimen from office to lab 14:27:17 CDT CPT-39882 Preventive, Est, (40-64) 09:29:06 [employer] SUPER[employer] CPT-48490 Preventive, Est, (40-64) 13:01:19 CDT
--- OUTSIDE RECORDS SUMMARY | 2017-10-29 09:10 | XMS REPORT | Continuity of Care Document ---
Author Author [facility] Organization [facility] Address Unknown Phone Unavailable Allergies Active Description Code Type Severity Reaction Onset Reported/Identified Relationship to Patient Clinical Status Yes albuterol [id number] Drug Allergy Unknown N/A 10/04/2012 Medications There is no data. Problems Date Dx Coded Attending Type Code Diagnosis Diagnosed By 07/03/2011 Ot 593.9 10/06/2012 Ot 250.00 10/06/2012 Ot 272.0 10/06/2012 Ot 311 10/06/2012 Ot 401.9 10/06/2012 Ot 493.92 10/06/2012 Ot 530.81 10/06/2012 Ot V03.82 10/06/2012 Ot V12.71 04/28/2015 Ot 250.00 04/28/2015 Ot 272.1 04/28/2015 Ot 401.1 04/28/2015 Ot 793.89 04/28/2015 Ot V76.12 04/28/2015 Ot 250.00 04/28/2015 Ot 272.1 04/28/2015 Ot 401.1 04/28/2015 Ot 793.80 04/28/2015 Ot 250.00 04/28/2015 Ot 272.1 04/28/2015 Ot 250.00 04/28/2015 Ot 272.1 04/28/2015 Ot 401.1 04/28/2015 Ot 733.90 04/28/2015 Ot 780.79 04/28/2015 Ot 250.00 04/28/2015 Ot 272.1 04/28/2015 Ot 401.1 04/28/2015 Ot 593.9 04/28/2015 Ot 250.00 04/28/2015 Ot 272.1 04/28/2015 Ot 401.1 04/28/2015 Ot 593.9 04/28/2015 AUGUSTIN LEIVA DO Ot 719.47 04/28/2015 AUGUSTIN LEIVA DO Ot V76.12 Procedures There is no data. Results There is no data. Encounters ACCT No. Visit Date/Time Discharge Status Pt. Type Provider Facility Loc./Unit Complaint [id number] 04/28/2015 07:22:00 04/28/2015 23:59:59 CLS Outpatient SHARATH HIGHTOWER [facility] CARD [id number] 01/07/2014 10:11:00 01/07/2014 23:59:59 CLS Outpatient LEIVA DO, AUGUSTIN [facility] RAD [id number] 04/01/2013 11:58:00 04/01/2013 23:59:59 CLS Outpatient LEIVA DO, AUGUSTIN [facility] RAD [id number] 04/28/2015 07:21:00 Document Registration [id number] 04/28/2015 07:21:00 Document Registration [id number] 10/04/2012 14:05:00 Document Registration [id number] 10/17/2011 08:23:00 Document Registration [id number] 07/04/2011 00:00:00 Document Registration [id number] 04/06/2011 06:19:00 Document Registration [id number] 03/02/2011 07:01:00 Document Registration [id number] 10/07/2010 12:19:00 Document Registration [id number] 10/07/2010 07:29:00 Document Registration [id number] 05/31/2010 07:02:00 Document Registration [id number] 03/15/2010 14:45:00 Document Registration [id number] 02/05/2010 07:14:00 Document Registration [id number] 02/03/2010 15:14:00 Document Registration [id number] 11/09/2009 06:24:00 Document Registration
[2017-10-29] MEDS ORDERED: DOXY100C2 PO (10:30)
[2017-10-29] MEDS ORDERED: KETOROLAC 30 MG/ML VIAL IM ONE (11:00)
--- NOTE | 2017-10-29 11:03 | ED Headache ---
General Chief Complaint: General Problems/Pain Stated Complaint: VOMITING, TICK FEVER Nursing Triage Note: c/o fatigue/sweats/nausea. Vomited x 1 this morning. Diagnosed with RMSF 2 weeks ago. Pt is on Day 14 of Doxycycline. Hx of cervical lymphadenopathy which has improved. Nursing Sepsis Screen: No Definite Risk Source: patient, family Exam Limitations: no limitations History of Present Illness Date Seen by Provider: October 29, 2017 Time Seen by Provider: 10:49 Initial Comments The patient presents to the ER by private conveyance with her significant other and a chief complaint she is having fairly severe headache, backache, multiple joint ache that started a couple weeks ago when she was diagnosed with [place] fever at urgent care. She's been having myalgias and low back pain and muscle achiness and joint achiness and pain. She's taken Tylenol 1000 mg this morning and that helped some and however she is finishing up her doxycycline 14 days today and still feels that she is feeling as bad as when she started the doxycycline. She has not followed up since starting her antibiotics. She is diabetic and has hypertension no history of heart disease. She is not on anticoagulants. She is not having any fevers chills nausea or vomiting. She says all of her joints feel swollen including her wrists where she is having a little numbness and tingling as well as both her lower extremities. She does not smoke nor did she ever and she is not having a cough. Allergies and Home Medications Allergies Coded Allergies: albuterol (Verified Allergy, Unknown, 10/04/12) Home Medications Alprazolam 0.25 Mg Tablet, 0.25 MG PO Q6H PRN, (Reported) prn pain Amoxicillin/Clavulanate K 1 Each Tablet, 1 EACH PO BID, (Reported) Budesonide 0.5 Mg/2 Ml Ampul.neb, 1 EACH IH BID, (Reported) Doxycycline Hyclate 100 Mg Capsule, 100 MG PO BID, (Reported) Glimepiride 1 Mg Tablet, 1 MG PO DAILY, (Reported) Losartan Potassium 100 Mg Tablet, 100 MG PO DAILY, (Reported) Lovastatin 10 Mg Tablet, 10 MG PO DAILY, (Reported) Lysine 1,000 Mg Tablet, 1,000 MG PO DAILY, (Reported) Melatonin/Pyridoxine Hcl (B6) 1 Each Tablet, 5 MG PO HS, (Reported) Metformin Hcl 1,000 Mg Tablet, 1,000 MG PO BID WITH MEALS, (Reported) Multivitamin 1 Each Tablet, 1 EACH PO DAILY, (Reported) Omeprazole 20 Mg Tablet.dr, 20 MG PO DAILY, (Reported) Prednisone 20 Mg Tab, 40 MG PO DAILY, (Reported) FOR THREE DAYS Prednisone 20 Mg Tab, 20 MG PO DAILY, (Reported) Triamterene/Hydrochlorothiazid 1 Each Tablet, 1 EACH PO DAILY, (Reported) 37.5-25 mg tablet Venlafaxine Hcl 150 Mg Tab.osm.24, 150 MG PO DAILY, (Reported) [Megared 300MG] , 300 MG PO DAILY, (Reported) Patient Home Medication List Home Medication List Reviewed: Yes Review of Systems Constitutional: No chills, No diaphoresis Eyes: Denies Blindness, Denies Drainage Ears, Nose, Mouth, Throat: denies ear pain, denies ear discharge Respiratory: No cough, No short of breath Cardiovascular: No chest pain, No edema Gastrointestinal: No abdominal pain, No constipation, No diarrhea, No nausea, No vomiting Genitourinary: No discharge, No dysuria : No Musculoskeletal: see HPI, back pain, joint pain Skin: No pruritus, No rash Past Jvdpjpa-Alrlxj-Yymchs Hx Patient Social History Alcohol Use: Denies Use Recreational Drug Use: No Smoking Status: Never a Smoker Recent Foreign Travel: No Contact w/Someone Who Travel: No Recent Infectious Disease Expo: No Recent Hopitalizations: Yes Immunizations Up To Date Tetanus Booster (TDap): More than 5yrs Date of Pneumonia Vaccine: Oct 05, 2012 Past Medical History Surgeries: Yes (ARIADNA,X4 C-SECT.,TUBAL LIG.,APPY,T&A,RIGHT LABRIUM REPAIR, gallbldder remov) Respiratory: Yes Chronic Bronchitis Neurological: No Reproductive Disorders: No Gastroesophageal Reflux, Gall Bladder Disease, Irritable Bowel Musculoskeletal: No Endocrine: Yes Diabetes, Non-Insulin dep Hearing Impairment: Hard of Hearing Cancer: No Psychosocial: Yes Depression Integumentary: No Blood Disorders: No Physical Exam Vital Signs Vital Signs - First Documented 10/29/17 09:40 Temp 97.2 Pulse 70 Resp 18 B/P (MAP) 144/70 (94) O2 Delivery Room Air Capillary Refill : Less Than 3 Seconds General Appearance: WD/WN, no apparent distress HEENT: PERRL/EOMI, pharynx normal Neck: non-tender, supple, normal inspection Cardiovascular: normal peripheral pulses, regular rate, rhythm, no edema Respiratory: chest non-tender, lungs clear, normal breath sounds, no respiratory distress, no accessory muscle use Gastrointestinal: normal bowel sounds, non tender, soft Back: other (bilateral lumbar tenderness to palpation) Extremities: no pedal edema, no calf tenderness, normal capillary refill Psychiatric: alert, oriented x 3 Crainal Nerves: normal hearing, normal speech, PERRL Coordination/Gait: normal gait Motor/Sensory: no motor deficit, no sensory deficit Skin: normal color, warm/dry Progress/Results/Core Measures Results/Orders Lab Results Laboratory Tests Test 10/29/17 11:12 Range/Units White Blood Count 7.1 4.3-11.0 10^3/uL Red Blood Count 4.20 L 4.35-5.85 10^6/uL Hemoglobin 11.7 11.5-16.0 G/DL Hematocrit 36 35-52 % Mean Corpuscular Volume 86 80-99 FL Mean Corpuscular Hemoglobin 28 25-34 PG Mean Corpuscular Hemoglobin Concent 33 32-36 G/DL Red Cell Distribution Width 13.4 10.0-14.5 % Platelet Count 243 130-400 10^3/uL Mean Platelet Volume 9.2 7.4-10.4 FL Neutrophils (%) (Auto) 66 42-75 % Lymphocytes (%) (Auto) 24 12-44 % Monocytes (%) (Auto) 7 0-12 % Eosinophils (%) (Auto) 2 0-10 % Basophils (%) (Auto) 0 0-10 % Neutrophils # (Auto) 4.7 1.8-7.8 X 10^3 Lymphocytes # (Auto) 1.7 1.0-4.0 X 10^3 Monocytes # (Auto) 0.5 0.0-1.0 X 10^3 Eosinophils # (Auto) 0.2 0.0-0.3 10^3/uL Basophils # (Auto) 0.0 0.0-0.1 10^3/uL Erythrocyte Sedimentation Rate 40 H 0-30 MM/HR Sodium Level 138 135-145 MMOL/L Potassium Level 3.5 L 3.6-5.0 MMOL/L Chloride Level 98 98-107 MMOL/L Carbon Dioxide Level 26 21-32 MMOL/L Anion Gap 14 5-14 MMOL/L Blood Urea Nitrogen 28 H 7-18 MG/DL Creatinine 1.05 0.60-1.30 MG/DL Estimat Glomerular Filtration Rate 54 BUN/Creatinine Ratio 27 Glucose Level 84 70-105 MG/DL Calcium Level 9.7 8.5-10.1 MG/DL Total Bilirubin 0.4 0.1-1.0 MG/DL Aspartate Amino Transf (AST/SGOT) 36 H 5-34 U/L Alanine Aminotransferase (ALT/SGPT) 36 0-55 U/L Alkaline Phosphatase 97 40-136 U/L C-Reactive Protein High Sensitivity 0.53 H 0.00-0.50 MG/DL Total Protein 7.2 6.4-8.2 GM/DL Albumin 4.3 3.2-4.5 GM/DL My Orders Orders - LUH CEDILLO Cbc With Automated Diff (10/29/17 10:58) Comprehensive Metabolic Panel (10/29/17 10:58) Hs C Reactive Protein (10/29/17 10:58) Erythrocyte Sedimentation Rate (10/29/17 10:58) Ketorolac Injection (Toradol Injection) (10/29/17 11:00) Medications Given in ED Current Medications Medications Dose Ordered Sig/Acacia Route Start Time Stop Time Status Last Admin Dose Admin Ketorolac Tromethamine 15 mg ONCE ONCE IM 10/29/17 11:00 10/29/17 11:01 DC 10/29/17 11:06 15 MG Vital Signs/I&O 10/29/17 09:40 Temp 97.2 Pulse 70 Resp 18 B/P (MAP) 144/70 (94) O2 Delivery Room Air Blood Pressure Mean: 94 Progress Progress Note : Time: 12:08 Progress Note ESR is elevated but per patient's history she is already known to have an ESR 40. They are working this up outpatient. It's also possible this could be related to [place] spotted fever. CRP is unremarkable. Other labs are unremarkable. Her pain in her joints and back are markedly improved after the NSAID shot. We'll put her on Naprosyn and extend her course of doxycycline by 1 week and have her follow up in 1-2 weeks with her primary care provider. It is entirely possible that her current course of antibiotics has been sufficient to treat her infection in her symptoms may persist for some time after completion of an successful antibiotic regimen. 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 Departure Impression Primary Impression: RMSF ([place] spotted fever) Additional Impression: Polyarthritis due to other bacteria Disposition: HOME, SELF-CARE Condition: Improved Departure-Patient Inst. Decision time for Depature: 12:10 Referrals: AUGUSTIN LEIVA DO (PCP/Family) Primary Care Physician Patient Instructions: [place] Spotted Fever (DC) Add. Discharge Instructions: Continue to drink plenty of fluids and use your antacids as well as take the Naprosyn 2 capsules twice a day for the next week to 2 weeks. If you begin to have heartburn, chest pain or stomach pain you should discontinue the Naprosyn and follow-up with your primary care provider. Tomorrow morning please call your primary care provider's office and request an appointment in the next 1-2 weeks to follow up resolution of your [place] spotted fever. Continue to take the antibiotic, doxycycline for a total of 21 days. windows support engineer a bottle of probiotics and take one capsule twice a day as long as you're on antibiotics. All discharge instructions reviewed with patient and/or family. Voiced understanding. Scripts Doxycycline Monohydrate (Doxycycline Monohydrate) 100 Mg Capsule 100 MG PO BID for 7 Days, #14 CAP 0 Refills Prov: LUH CEDILLO 10/29/17 Copy Copies To 1: AUGUSTIN LEIVA TITUS J October 29, 2017 11:03
[2017-10-29 11:19] LABS: BASOPHILS % (AUTO) 0 % (0-10); EOSINOPHILS # (AUTO) 0.2 10^3/uL (0.0-0.3); EOSINOPHILS % (AUTO) 2 % (0-10); HEMATOCRIT 36 % (35-52); HEMOGLOBIN 11.7 G/DL (11.5-16.0); LYMPHOCYTES # (AUTO) 1.7 X 10^3 (1.0-4.0); LYMPHOCYTES % (AUTO) 24 % (12-44); MEAN CORPUSCULAR HEMOGLOBIN 28 PG (25-34); MEAN CORPUSCULAR HGB CONC 33 G/DL (32-36); MEAN CORPUSCULAR VOLUME 86 FL (80-99); MEAN PLATELET VOLUME 9.2 FL (7.4-10.4); MONOCYTES # (AUTO) 0.5 X 10^3 (0.0-1.0); MONOCYTES % (AUTO) 7 % (0-12); NEUTROPHILS # (AUTO) 4.7 X 10^3 (1.8-7.8); NEUTROPHILS % (AUTO) 66 % (42-75); PLATELET COUNT 243 10^3/uL (130-400); RED CELL DISTRIBUTION WIDTH 13.4 % (10.0-14.5); WHITE BLOOD COUNT 7.1 10^3/uL (4.3-11.0)
[2017-10-29 11:38] LABS: ALBUMIN 4.3 GM/DL (3.2-4.5); BILIRUBIN,TOTAL 0.4 MG/DL (0.1-1.0); CALCIUM 9.7 MG/DL (8.5-10.1); CREATININE SERUM 1.05 MG/DL (0.60-1.30); POTASSIUM 3.5 MMOL/L (3.6-5.0); TOTAL PROTEIN 7.2 GM/DL (6.4-8.2)
[2017-10-29 11:39] LABS: ERYTHROCYTE SEDIMENTATION RATE 40 MM/HR (0-30)
[2017-10-29 12:14] VITALS: BP 140/72
[2017-10-29] MEDS ORDERED: DOXY100C42 PO (12:14)
== END 2017-10-29 12:14 | disposition home or self-care (01) ==
LOC: EDUNIT# 08:57 → ER 08:58
DX: A77.0 Spotted fever due to Rickettsia rickettsii (principal); M00.80 Arthritis due to other bacteria, unspecified joint; B96.89 Other specified bacterial agents as the cause of diseases classified elsewhere; E11.9 Type 2 diabetes mellitus without complications; I10 Essential (primary) hypertension; K21.9 Gastro-esophageal reflux disease without esophagitis; F32.9 Major depressive disorder, single episode, unspecified; Z90.49 Acquired absence of other specified parts of digestive tract; Z98.51 Tubal ligation status; Z87.19 Personal history of other diseases of the digestive system; Z88.8 Allergy status to other drugs, medicaments and biological substances; Z79.84 Long term (current) use of oral hypoglycemic drugs; Z79.52 Long term (current) use of systemic steroids
CPT/HCPCS: 36415; 80053; 85025; 85652; 86141; 96372; 99281

== ENCOUNTER → 2018-03-20 | Outpatient (REF) ==
[~2018-03-20] MED LIST changes: +DOXY100C2 PO; +DOXY100C42 PO
--- NOTE | 2018-03-20 11:47 | Diagnostic Imaging Report ---
EXAM: LUMBAR SPINE - 2-3 VIEWS INDICATION: INJURED LOWER BACK COMPARISON: None. FINDINGS: There are 5 lumbar type vertebral bodies. Grade 1 anterolisthesis of L4 and L5. Mild degenerative endplate changes are more moderate at L5-S1 in the lower thoracic spine. Mild to moderate facet arthropathy at L4-S1. Vertebral body heights preserved. No acute fractures. Mild degenerative changes in the sacroiliac joints. The visualized pelvis is intact. Surgical clips in the right upper quadrant. IMPRESSION: Mild to moderate spondylotic changes as above. No acute radiographic findings. Dictated by: Dictated on workstation # [id number]
== END | disposition home or self-care (01) ==
LOC: OCC 10:55
CPT/HCPCS: 72100

== ENCOUNTER 2019-12-27 13:48 | Emergency (ER) | payer BC ==
[~2019-12-27] VITALS: Ht 165.1 cm; Wt 79.8 kg
[2019-12-27] MEDS ORDERED: CHARCOAL/AQUEOUS 50 GM/240 ML BTL ONE (14:00)
--- NOTE | 2019-12-27 14:06 | ED General ---
General Chief Complaint: Overdose Stated Complaint: OVERDOSE Source of Information: Patient Exam Limitations: No Limitations History of Present Illness Date Seen by Provider: Dec 27, 2019 Time Seen by Provider: 14:03 Initial Comments To ER with reports of accidental ingestion of up to 20 of her phentermine tablets 37.5 mg. This occurred between 1:25 and 1:30 PM this afternoon. She confused her pill bottles. She did not have her daily dose of losartan because s he ran out yesterday and put the phentermine in that bottle. She called poison control on her way here after realizing what she had done. They called here to report that she was coming and recommended no charcoal if she is symptomatic. She denies symptoms on arrival Timing/Duration: 1/2 Hour Severity: Moderate Associated Systoms: Denies Symptoms Allergies and Home Medications Allergies Coded Allergies: albuterol (Verified Allergy, Unknown, 10/04/12) Home Medications Alprazolam 0.25 Mg Tablet, 0.25 MG PO Q6H PRN, (Reported) prn pain Amoxicillin/Clavulanate K 1 Each Tablet, 1 EACH PO BID, (Reported) Budesonide 0.5 Mg/2 Ml Ampul.neb, 1 EACH IH BID, (Reported) Doxycycline Hyclate 100 Mg Capsule, 100 MG PO BID, (Reported) Doxycycline Monohydrate 100 Mg Capsule, 100 MG PO BID Prescribed by: LUH CEDILLO on 10/29/17 1214 Glimepiride 1 Mg Tablet, 1 MG PO DAILY, (Reported) Losartan Potassium 100 Mg Tablet, 100 MG PO DAILY, (Reported) Lovastatin 10 Mg Tablet, 10 MG PO DAILY, (Reported) Lysine 1,000 Mg Tablet, 1,000 MG PO DAILY, (Reported) Melatonin/Pyridoxine Hcl (B6) 1 Each Tablet, 5 MG PO HS, (Reported) Metformin Hcl 1,000 Mg Tablet, 1,000 MG PO BID WITH MEALS, (Reported) Multivitamin 1 Each Tablet, 1 EACH PO DAILY, (Reported) Omeprazole 20 Mg Tablet.dr, 20 MG PO DAILY, (Reported) Prednisone 20 Mg Tab, 40 MG PO DAILY, (Reported) FOR THREE DAYS Prednisone 20 Mg Tab, 20 MG PO DAILY, (Reported) Triamterene/Hydrochlorothiazid 1 Each Tablet, 1 EACH PO DAILY, (Reported) 37.5-25 mg tablet Venlafaxine Hcl 150 Mg Tab.osm.24, 150 MG PO DAILY, (Reported) [Megared 300MG] , 300 MG PO DAILY, (Reported) Patient Home Medication List Home Medication List Reviewed: Yes Review of Systems Review of Systems Constitutional: see HPI EENTM: see HPI Respiratory: no symptoms reported Cardiovascular: no symptoms reported Genitourinary: no symptoms reported Musculoskeletal: no symptoms reported Skin: no symptoms reported Psychiatric/Neurological: No Symptoms Reported Hematologic/Lymphatic: No Symptoms Reported Immunological/Allergic: no symptoms reported Past Djffjfw-Rzdzzz-Wpumkc Hx Patient Social History Alcohol Use: Denies Use Recreational Drug Use: No 2nd Hand Smoke Exposure: No Recent Foreign Travel: No Contact w/Someone Who Travel: No Recent Hopitalizations: Yes Immunizations Up To Date Tetanus Booster (TDap): More than 5yrs Date of Pneumonia Vaccine: Oct 05, 2012 Past Medical History Surgeries: Yes (ARIADNA,X4 C-SECT.,TUBAL LIG.,APPY,T&A,RIGHT LABRIUM REPAIR, gallbldder remov) Respiratory: Yes Chronic Bronchitis Neurological: No Reproductive Disorders: No Gastroesophageal Reflux, Gall Bladder Disease, Irritable Bowel Musculoskeletal: No Endocrine: Yes Diabetes, Non-Insulin dep Hearing Impairment: Hard of Hearing Cancer: No Psychosocial: Yes Depression Integumentary: No Blood Disorders: No Physical Exam Vital Signs Vital Signs - First Documented 12/27/19 13:48 Temp 36.4 Pulse 68 Resp 18 B/P (MAP) 141/73 (95) Pulse Ox 97 O2 Delivery Room Air Capillary Refill : Height, Weight, BMI Height: 5'6.00" Weight: 233lbs. oz. 105.325056fp; BMI Method:Stated General Appearance: No Apparent Distress, WD/WN, Anxious (alert and oriented heart rate 73 normal sinus rhythm with normal intervals and no ectopy blood pressure 147/87) Eyes: Bilateral Eye Normal Inspection, Bilateral Eye PERRL Neck: Full Range of Motion, Normal Inspection Respiratory: No Accessory Muscle Use, No Respiratory Distress Cardiovascular: Regular Rate, Rhythm, Normal Peripheral Pulses Gastrointestinal: Normal Bowel Sounds, Non Tender, Soft Extremity: Normal Capillary Refill, Normal Inspection Neurologic/Psychiatric: Alert, Oriented x3 Skin: Normal Color, Warm/Dry Progress/Results/Core Measures Suspected Sepsis SIRS Temperature: Pulse: Respiratory Rate: Laboratory Tests 12/27/19 13:50: White Blood Count 6.2 Blood Pressure / Mean: Laboratory Tests 12/27/19 13:50: Creatinine 1.03, Platelet Count 251, Total Bilirubin 0.3 Results/Orders Lab Results Laboratory Tests Test 12/27/19 13:50 Range/Units White Blood Count 6.2 4.3-11.0 10^3/uL Red Blood Count 4.32 L 4.35-5.85 10^6/uL Hemoglobin 12.4 11.5-16.0 G/DL Hematocrit 37 35-52 % Mean Corpuscular Volume 85 80-99 FL Mean Corpuscular Hemoglobin 29 25-34 PG Mean Corpuscular Hemoglobin Concent 34 32-36 G/DL Red Cell Distribution Width 12.8 10.0-14.5 % Platelet Count 251 130-400 10^3/uL Mean Platelet Volume 9.5 7.4-10.4 FL Neutrophils (%) (Auto) 59 42-75 % Lymphocytes (%) (Auto) 31 12-44 % Monocytes (%) (Auto) 8 0-12 % Eosinophils (%) (Auto) 2 0-10 % Basophils (%) (Auto) 0 0-10 % Neutrophils # (Auto) 3.7 1.8-7.8 X 10^3 Lymphocytes # (Auto) 2.0 1.0-4.0 X 10^3 Monocytes # (Auto) 0.5 0.0-1.0 X 10^3 Eosinophils # (Auto) 0.2 0.0-0.3 10^3/uL Basophils # (Auto) 0.0 0.0-0.1 10^3/uL Sodium Level 138 135-145 MMOL/L Potassium Level 4.1 3.6-5.0 MMOL/L Chloride Level 102 98-107 MMOL/L Carbon Dioxide Level 25 21-32 MMOL/L Anion Gap 11 5-14 MMOL/L Blood Urea Nitrogen 13 7-18 MG/DL Creatinine 1.03 0.60-1.30 MG/DL Estimat Glomerular Filtration Rate 55 BUN/Creatinine Ratio 13 Glucose Level 110 H 70-105 MG/DL Calcium Level 9.8 8.5-10.1 MG/DL Corrected Calcium 9.6 8.5-10.1 MG/DL Total Bilirubin 0.3 0.1-1.0 MG/DL Aspartate Amino Transf (AST/SGOT) 19 5-34 U/L Alanine Aminotransferase (ALT/SGPT) 15 0-55 U/L Alkaline Phosphatase 107 40-136 U/L Total Protein 7.1 6.4-8.2 GM/DL Albumin 4.2 3.2-4.5 GM/DL My Orders Orders - RICCI BUCKNER APRN Charcoal Activated Aqueous (Actidose Aqu (12/27/19 14:15) Cbc With Automated Diff (12/27/19 14:01) Comprehensive Metabolic Panel (12/27/19 14:01) Ekg Tracing (12/27/19 14:01) Ed Iv/Invasive Line Start (12/27/19 14:01) Miter Grinder Operator (12/27/19 14:01) Charcoal Activated Aqueous (Actidose Aqu (12/27/19 14:00) Ondansetron Injection (Zofran Injectio (12/27/19 14:15) Lorazepam Injection (Ativan Injection) (12/27/19 14:30) Lorazepam Injection (Ativan Injection) (12/27/19 15:45) Metoprolol Tartrate Injection (Lopressor (12/27/19 15:45) Medications Given in ED Current Medications Medications Dose Ordered Sig/Acacia Route Start Time Stop Time Status Last Admin Dose Admin Charcoal 50 gm ONCE ONCE PO 12/27/19 14:15 12/27/19 14:16 DC 12/27/19 14:03 50 GM Lorazepam 1 mg ONCE PRN IVP 12/27/19 14:30 12/27/19 14:24 1 MG Ondansetron HCl 4 mg ONCE ONCE IVP 12/27/19 14:15 12/27/19 14:16 DC 12/27/19 14:16 4 MG Vital Signs/I&O 12/27/19 13:48 Temp 36.4 Pulse 68 Resp 18 B/P (MAP) 141/73 (95) Pulse Ox 97 O2 Delivery Room Air Capillary Refill : Departure Impression Primary Impression: Accidental amphetamine overdose Qualified Codes: T43.621A - Poisoning by amphetamines, accidental (unintentional), initial encounter Additional Impression: Phentermine adverse reaction Qualified Codes: T50.5X5A - Adverse effect of appetite depressants, initial encounter Disposition: 01 HOME, SELF-CARE Condition: Stable Departure-Patient Inst. Referrals: AUGUSTIN LEIVA DO (PCP) Primary Care Physician CARLOS MARTINEZ DO (Family) Primary Care Physician Patient Instructions: ALCOHOL AND SUBSTANCE ABUSE RICCI BUCKNER APRN Dec 27, 2019 14:06
[2019-12-27] MEDS ORDERED: ONDANSETRON 4 MG/2 ML (SDV) Z0FRAN IVP ONE (14:15)
[2019-12-27] MEDS ORDERED: CHARCOAL/AQUEOUS 50 GM/240 ML BTL PO ONE (14:15)
[2019-12-27 14:18] LABS: BASOPHILS % (AUTO) 0 % (0-10); EOSINOPHILS # (AUTO) 0.2 10^3/uL (0.0-0.3); EOSINOPHILS % (AUTO) 2 % (0-10); HEMATOCRIT 37 % (35-52); HEMOGLOBIN 12.4 G/DL (11.5-16.0); LYMPHOCYTES % (AUTO) 31 % (12-44); MEAN CORPUSCULAR HEMOGLOBIN 29 PG (25-34); MEAN CORPUSCULAR HGB CONC 34 G/DL (32-36); MEAN CORPUSCULAR VOLUME 85 FL (80-99); MEAN PLATELET VOLUME 9.5 FL (7.4-10.4); MONOCYTES # (AUTO) 0.5 X 10^3 (0.0-1.0); MONOCYTES % (AUTO) 8 % (0-12); NEUTROPHILS # (AUTO) 3.7 X 10^3 (1.8-7.8); NEUTROPHILS % (AUTO) 59 % (42-75); PLATELET COUNT 251 10^3/uL (130-400); RED CELL DISTRIBUTION WIDTH 12.8 % (10.0-14.5); WHITE BLOOD COUNT 6.2 10^3/uL (4.3-11.0)
[2019-12-27 14:23] LABS: ALBUMIN 4.2 GM/DL (3.2-4.5); POTASSIUM 4.1 MMOL/L (3.6-5.0)
[2019-12-27 14:24] LABS: CALCIUM 9.8 MG/DL (8.5-10.1)
[2019-12-27 14:25] LABS: TOTAL PROTEIN 7.1 GM/DL (6.4-8.2)
[2019-12-27 14:27] LABS: BILIRUBIN,TOTAL 0.3 MG/DL (0.1-1.0)
[2019-12-27 14:29] LABS: CREATININE SERUM 1.03 MG/DL (0.60-1.30)
[2019-12-27] MEDS ORDERED: LORazepam INJ 2 MG/ML (ATIVAN) VIAL IVP PRN (14:30)
[2019-12-27] MEDS ORDERED: meTOprolol 5 MG/5 ML (LOPRESSOR) VIAL IV ONE (15:45)
[2019-12-27] MEDS ORDERED: LORazepam INJ 2 MG/ML (ATIVAN) VIAL IVP ONE (15:45)
--- NOTE | 2019-12-27 16:16 | NUR ---
Spoke to poison control at this time.
[2019-12-27 17:05] VITALS: BP 122/78
--- OUTSIDE RECORDS SUMMARY | 2019-12-27 17:33 | XMS REPORT ---
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[employer] [facility] ADOP [facility] Address [address] [address] Care Team Providers Care Orderly Name Role Phone LEIVA, AUGUSTIN Unavailable Unavailable Unavailable Allergies No Information Encounters Encounter Date Encounter Type Encounter Diagnosis Care Provider Facility Start: Patient encounter CALIN PADRON MD Not Mindy ilable ([id number]) 03-20-2018 procedure Start: Patient encounter NA NA Not Availab le ([id number]) 10-29-2017 procedure Start: Patient encounter 04-28-2015 procedure Start: Patient encounter 01-07-2014 procedure Start: Patient encounter AUGUSTIN LEIVA DO Not Availa ble ([id number]) 04-01-2013 procedure Start: Evaluation and 10-04-2012 management of inpatient End: 10-06-2012 Medical Equipment No Information Goals No Information Immunizations No Information Interventions No Information Medications No Information Payers No Information Plan of Treatment The data below is from unstructured sources Discharge Date 10/29/17 12:14pm Disposition 01 HOME, SELF-CARE Condition at Discharge Improved Instructions/Education Provided [place] Spotted Fever (DC) Prescriptions See Medication Section Referrals AUGUSTIN LEIVA DO Order Date: Primary Care Physician Address: [address] [place] [phone] Additional Instructions/Education Co ntinue to drink plenty of fluids and use your antacids as well as take the Naprosyn 2 capsules twice a day for the next week to 2 weeks. If you begin to have heartburn, chest pain or stomach pain you should discontinue the Naprosyn and follow-up with your primary care provider. Tomorrow morning please call your primary care provider's office and request an appointment in the next 1-2 weeks to follow up resolution of your [place] spotted fever. Continue to take the antibiotic, doxycycline for a total of 21 days. 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 All discharge instructions reviewed with patient and/or family. Voiced understanding. Problems Problem Problem Date Last Documented Episodic/Chr Provider Classificati Recorded Date onic on Allergic Allergy status to other drugs, Episo dic reactions medicaments and biological (7 sources) substances status Bacterial Other specified bacterial agents as Episodic infection; the cause of diseases class ified unspecified elsewhere site (7 sources) Contraceptiv Tubal ligation status Episodic e and procreative management (7 sources) Gastroduoden Personal history of peptic ulcer Epi sodic al ulcer disease (except hemorrhage) (4 sources) Headache; Headache Episodic including migraine (7 sources) Immunization Other specified vaccinations Episodi c s and against streptococcus pneum oniae screening [pneumococcus] for infectious disease (4 sources) Infective Arthritis due to other bacteria, Epi sodic arthritis unspecified joint and osteomyeliti s (except that caused by tuberculosis or sexually transmitted disease) (7 sources) Mood Major depressive disorder, single Ch ronic disorders episode, unspecified ; (11 sources) Translations: [Depressive d isorder, not elsewhere classified] Nonspecific Chest pain, unspecified Episodic chest pain (4 sources) Other [facility] (current) use of oral Epis odic aftercare hypoglycemic drugs (7 sources) Other [facility] (current) use of systemic Episodic aftercare steroids (7 sources) Other Personal history of other diseases E pisodic gastrointest of the digestive system inal disorders (7 sources) Other Spotted fever due to Rickettsia Epis odic infections; rickettsii including parasitic (7 sources) Residual Acquired absence of other specified Episodic codes; parts of digestive tract unclassified (7 sources) Procedures The data below is from unstructured sourcesNo procedure information available. Results Test Name Value Interpreta Reference Facilit Date tion Range y Time laboratory on 2019-12-27 Albumin [Mass/Vol] 4.2 g/dL Negative 3.2-4.5 PENDING - 0-2 g/dL [facility] 09:50-0 ([id number]) 400 ALP [Catalytic 107 U/L Negative 40-136 U/L PENDING activity/Vol] [facility] 09:50-0 ([id number]) 400 ALT [Catalytic 15 U/L Negative 0-55 U/L PENDING activity/Vol] [facility] 09:50-0 ([id number]) 400 Anion gap 11 mmol/L Negative 5-14 PENDING -10-2 [Moles/Vol] mmol/L [facility] 09:50-0 ([id number]) 400 AST [Catalytic 19 U/L Negative 5-34 U/L PENDING 12-26-2 activity/Vol] [facility] 09:50-0 ([id number]) 400 Basophils (Bld) 0.0 10*3/uL Negative 0.0-0.1 PENDING 12-26 -2 [#/Vol] 10*3/uL [facility] 020 [facility] 09:50-0 ([id number]) 400 Basophils/100 WBC 0 % Negative 0-10 % PENDING 12-26 -2 (Bld) [facility] 020 [facility] 09:50-0 ([id number]) 400 Bilirubin [Mass/Vol] 0.3 mg/dL Negative 0.1-1.0 PENDING 07 -10-2 mg/dL [facility] 09:50-0 ([id number]) 400 Calcium [Mass/Vol] 9.8 mg/dL Negative 8.5-10.1 PENDING 07-1 0-2 mg/dL [facility] 09:50-0 ([id number]) 400 Calcium [Mass/Vol] 9.6 mg/dL Negative 8.5-10.1 PENDING 07-1 0-2 mg/[facility] 09:50-0 ([id number]) 400 Chloride [Moles/Vol] 102 mmol/L Negative 98-107 PENDING 0 7-10-2 mmol/L [facility] 0[facility] 09:50-0 ([id number]) 400 CO2 [Moles/Vol] 25 mmol/L Negative 21-32 PENDING 07-10-2 mmol/L [facility] 020 [facility] 09:50-0 ([id number]) 400 Creatinine 1.03 mg/dL Negative 0.60-1.30 PENDING 07-10-2 [Mass/Vol] mg/dL [facility] 0[facility] 09:50-0 ([id number]) 400 Creatinine and 55 Invalid PENDING 12-26-2 [facility]ta [facility] filtration tion Code [facility] 09:50-0 rate.predicted panel ([id number]) 400 - Serum, Plasma or Blood Eosinophils (Bld) 0.2 10*3/uL Negative 0.0-0.3 PENDING 03-20 [#/Vol] 10*3/uL [facility] 09:50-0 ([id number]) 400 Eosinophils/100 WBC 2 % Negative 0-10 % PENDING 03-20 (Bld) [facility] 09:50-0 ([id number]) 400 Erythrocyte 12.8 % Negative 10.0-14.5 PENDING distribution width % [facility] (RBC) [Ratio] [facility] 09:50-0 ([id number]) 400 Glucose [Mass/Vol] 110 mg/dL High 70-105 PENDING - 0-2 mg/dL [address] 09:50-0 (50637) 400 Hematocrit (Bld) 37 % Negative 35-52 % PENDING [Volume fraction] [address] 09:50-0 (84337) 400 Hemoglobin (Bld) 12.4 g/dL Negative 11.5-16.0 PENDING [Mass/Vol] g/dL [address] 09:50-0 (22132) 400 Lymphocytes (Bld) 2.0 10*3/uL Negative 1.0-4.0 PENDING 03-20 [#/Vol] 10*3 [facility] 09:50-0 (29038) 400 Lymphocytes/100 WBC 31 % Negative 12-44 % PENDING 03-20 (Bld) [address] 09:50-0 (16790) 400 MCH (RBC) [Entitic 29 pg Negative 25-34 pg PENDING 07-1 0-2 mass] [address] 09:50-0 (99074) 400 MCHC (RBC) 34 g/dL Negative 32-36 g/dL PENDING [Mass/Vol] [facility] 09:50-0 (13760) 400 MCV (RBC) [Entitic 85 Negative 80-99 PENDING 07-1 0-2 vol] [foz_us] [address] 09:50-0 (64608) 400 Monocytes (Bld) 0.5 10*3/uL Negative 0.0-1.0 PENDING 12-26 [#/Vol] 10*3 [facility] N [facility] 09:50-0 (53744) 400 Monocytes/100 WBC 8 % Negative 0-12 % PENDING 12-26 (Bld) [facility] 09:50-0 ([id number]) 400 Neutrophils (Bld) 3.7 10*3/uL Negative 1.8-7.8 PENDING 03-20 [#/Vol] 10*3 [facility] 020 [facility] 09:50-0 (45030) 400 Neutrophils/100 WBC 59 % Negative 42-75 % PENDING 03-20 (Bld) [facility] 020 [facility] 09:50-0 (70774) 400 Platelet mean volume 9.5 Negative 7.4-10.4 PENDING (Bld) [Entitic vol] [foz_us] [facility] 09:50-0 ([id number]) 400 Platelets (Bld) 251 10*3/uL Negative 130-400 PENDING 12-26 [#/Vol] 10*3/uL [facility] 0[facility] 09:50-0 (46011) 400 Potassium 4.1 mmol/L Negative 3.6-5.0 PENDING [Moles/Vol] mmol/L [facility] 020 [facility] 09:50-0 (51201) 400 Protein [Mass/Vol] 7.1 g/dL Negative 6.4-8.2 PENDING 07-1 0-2 g/dL [facility] 020 [facility] 09:50-0 (29059) 400 RBC (Bld) [#/Vol] 4.32 10*6/uL Low 4.35-5.85 PENDING 10*6/uL [facility] 020 [facility] 09:50-0 (31034) 400 Sodium [Moles/Vol] 138 mmol/L Negative 135-145 PENDING -2 mmol/L [facility] 020 [facility] 09:50-0 (27459) 400 Urea nitrogen 13 mg/dL Negative 7-18 mg/dL PENDING [Mass/Vol] [facility] N [facility] 09:50-0 (35970) 400 Urea 13 mg/mg Invalid PENDING nitrogen/Creatinine Interpreta [facility] 020 [Mass ratio] tion Code N [facility] 09:50-0 (17303) 400 WBC (Bld) [#/Vol] 6.2 10*3/uL Negative 4.3-11.0 PENDING 03-20 10*3/uL [facility] N [facility] 09:50-0 ([id number]) 400 Social History No Information Vital Signs The data below is from unstructured sources Vital Response Date/Time Temperature (Fahrenheit) 97.2 degree s F (97.6 - 99.5) 10/29/2017 12:14pm Temperature (Calculated Celsius) 36. 46159 degrees C (36.4 - 37.5) 10/29/2017 12:14pm Temperature Source Temporal 10/29/2017 12:14pm Pulse Rate (adult) 68 bpm (60 - 90) 10/29/2017 12:14pm Respiratory Rate 16 bpm (12 - 24) 10/29/2017 12:14pm O2 Sat by Pulse Oximetry 98 % (88 - 100) 10/29/2017 12:14pm Blood Pressure 140/72 mm Hg 10/29/2017 12:14pm Blood Pressure Mean 94 mm Hg (65 - 110) 10/29/2017 12:14pm Pain Numeric Pain Scale 1 12:14pm Height (Feet) 5 feet 9:40am Height (Inches) 6.00 inches 10/29/2017 9:40am Height (Calculated Centimeters) 167. 868764 cm 10/29/2017 9:40am Weight (Pounds) 233 pounds 10/29/2017 9:40am Weight (Calculated Grams) 441921.02 gm 10/29/2017 9:40am Weight (Calculated Kilograms) 105.68 7023 kilograms 10/29/2017 9:40am Weight Method Stated 9:40am Capillary Refill Capillary Refill Less Than 3 Seconds 10/29/2017 9:40am Height 5 ft 6 in 018 9:40am Weight 233 lb 10/29/2017 9:40am Body Mass Index 37.6 kg/m^2 10/29/2017 9:40am Functional Status The data below is from unstructured sourcesNo functional status information available. Mental Status No Information Advance Directives Directive Response Recor ded Date/Time Advance Directives No 10:08am Health Care Power of Director Cloud Transformation No 10/29/17 10:08am Organ Donor No 10/29/17 10:08am Resuscitation Status Full Code 10/29/17 10:08am Discharge Instructions No hospital discharge instruction information available. Additional Source Comments This clinical document has been generated using [employer] software that has been certified by the Office of the National Coordinator for Health Information Technology (ONC 15.99.04.3023.Diam.31.00.0.680179) and the National Committee for Agricultural Service Worker (NCQA, as an eMeasure certified technology). FOR RECORDS PERTAINING TO PATIENTS WHO ARE OR HAVE BEEN ENROLLED IN A CHEMICAL D EPENDENCY/SUBSTANCE ABUSE PROGRAM, SOME INFORMATION MAY BE OMITTED. This clinica l summary was aggregated from multiple sources. Caution should be exercised in using it in the provision of clinical care. This summary normalizes information from multiple sources, and as a consequence, information in this document may ma terially change the coding, format and clinical context of patient data. In lisa tion, data may be omitted in some cases. CLINICAL DECISIONS SHOULD BE BASED ON T HE PRIMARY CLINICAL RECORDS. [employer] provides no warranty or guara ntee of the accuracy or completeness of information in this document.The followi ng information is based on time limited clinical information
--- OUTSIDE RECORDS SUMMARY | 2019-12-27 17:34 | XMS REPORT | Continuity of Care Document ---
Author Organization Unknown Address Unknown Phone Unavailable Allergies Active Description Code Type Severity Reaction Onset Reported/Identified Relationship to Patient Clinical Status Yes albuterol [id number] Drug Allergy Unknown N/A 10/04/2012 Medications There is no data. Problems Date Dx Coded Attending Type Code Diagnosis Diagnosed By 07/03/2011 Ot 593.9 10/06/2012 Ot 250.00 SERENITY B CALLIE WO COMPL, TYPE II OR UNSPEC TY 10/06/2012 Ot 272.0 PURE HYPERCHOLESTEROLEM 10/06/2012 Ot 311 DEPRES SIVE DISORDER NEC 10/06/2012 Ot 401.9 HYPE RTENSION NOS 10/06/2012 Ot 493.92 AST HMA, UNSPECIFIED, W (ACUTE) EXACERBAT 10/06/2012 Ot 530.81 ESO PHAGEAL REFLUX 10/06/2012 Ot V03.82 PRO PHYLACTIC VACC AGAINST STREPTOCOCCUS 10/06/2012 Ot V12.71 PER KYLE HISTORY OF PEPTIC ULCER DISEASE 04/28/2015 Ot 250.00 04/28/2015 Ot 272.1 04/28/2015 [...] 04/28/2015 AUGUSTIN LEIVA DO Ot 719.47 04/28/2015 NILAY LEIVA DOI Ot V76.12 10/29/2017 AUGUSTIN LEIVA DO Ot 719.47 JOINT PAIN-ANKLE 10/29/2017 AUGUSTIN LEIVA DO Ot V76.12 OTH SCREEN MAMMO-MALIGN NEOPLASM OF SANTI 10/29/2017 SHARATH HIGHTOWER MILIT[employer] EQUIPMENT SPECIALIST Ot R07.9 CHEST PAIN, UNSPECIFIED 10/29/2017 LUH CEDILLO MD Ot A77. 0 SPOTTED FEVER DUE TO RICKETTSIA JOSE 10/29/2017 LUH CEDILLO MD Ot B96. 89 OT BACTERIAL AGENTS THE CAUSE OF DIS 10/29/2017 LUH CEDILLO MD Ot E11. 9 TYPE 2 DIABETES MELLITUS WITHOUT COMPLIC 10/29/2017 LUH CEDILLO MD Ot F32. 9 MAJOR DEPRESSIVE DISORDER, SINGLE EPISOD 10/29/2017 LUH CEDILLO MD Ot I10 ESSENTIAL (PRIMARY) HYPERTENSION 10/29/2017 LUH CEDILLO MD Ot K21. 9 GASTRO-ESOPHAGEAL REFLUX DISEASE WITHOUT 10/29/2017 LUH CEDILLO MD Ot M00. 80 ARTHRITIS DUE TO OTHER BACTERIA, UNSPECI 10/29/2017 LUH CEDILLO MD Ot R51 HEADACHE 10/29/2017 LUH CEDILLO MD Ot Z79. 52 FDC (CURRENT) USE OF SYSTEMIC STER 10/29/2017 LUH CEDILLO MD Ot Z79. 84 HIDES AND SKINS COLORER (CURRENT) USE OF ORAL HYPOGLYC 10/29/2017 LUH CEDILLO MD Ot Z87. 19 PERSONAL HISTORY OF OTHER DISEASES OF TH 10/29/2017 LUH CEDILLO MD Ot Z88. 8 ALLERGY STATUS TO OT DRUG/MEDS/BIOL SUB 10/29/2017 LUH CEDILLO MD Ot Z90. 49 ACQUIRED ABSENCE OF OTHER SPECIFIED PART 10/29/2017 LUH CEDILLO MD Ot Z98. 51 TUBAL LIGATION STATUS 10/29/2017 AUGUSTIN LEIVA DO Ot 719.47 JOINT PAIN-ANKLE 10/29/2017 AUGUSTIN LEIVA DO Ot V76.12 OTH SCREEN MAMMO-MALIGN NEOPLASM OF SANTI 10/29/2017 SHARATH HIGHTOWER MILIT[employer] EQUIPMENT SPECIALIST Ot R07.9 CHEST PAIN, UNSPECIFIED 10/29/2017 AUGUSTIN LEIVA DO Ot 719.47 JOINT PAIN-ANKLE 10/29/2017 AUGUSTIN LEIVA DO Ot V76.12 OTH SCREEN MAMMO-MALIGN NEOPLASM OF SANTI 10/29/2017 SHARATH HIGHTOWER MILIT[employer] EQUIPMENT SPECIALIST Ot R07.9 CHEST PAIN, UNSPECIFIED 10/31/2017 LUH CEDILLO MD Ot A77. 0 SPOTTED FEVER DUE TO RICKETTSIA JOSE 10/31/2017 LUH CEDILLO MD Ot B96. 89 OTH BACTERIAL AGENTS THE CAUSE OF DIS 10/31/2017 LUH CEDILLO MD Ot E11. 9 TYPE 2 DIABETES MELLITUS WITHOUT COMPLIC 10/31/2017 LUH CEDILLO MD Ot F32. 9 MAJOR DEPRESSIVE DISORDER, SINGLE EPISOD 10/31/2017 LUH CEDILLO MD Ot I10 ESSENTIAL (PRIMARY) HYPERTENSION 10/31/2017 LUH CEDILLO MD Ot K21. 9 GASTRO-ESOPHAGEAL REFLUX DISEASE WITHOUT 10/31/2017 LUH CEDILLO MD Ot M00. 80 ARTHRITIS DUE TO OTHER BACTERIA, UNSPECI 10/31/2017 LUH CEDILLO MD Ot R51 HEADACHE 10/31/2017 LUH CEDILLO MD Ot Z79. 52 HIDES AND SKINS COLORER (CURRENT) USE OF SYSTEMIC STER 10/31/2017 LUH CEDILLO MD Ot Z79. 84 HIDES AND SKINS COLORER (CURRENT) USE OF ORAL HYPOGLYC 10/31/2017 LUH CEDILLO MD Ot Z87. 19 PERSONAL HISTORY OF OTHER DISEASES OF TH 10/31/2017 LUH CEDILLO MD Ot Z88. 8 ALLERGY STATUS TO OT DRUG/MEDS/BIOL SUB 10/31/2017 LUH CEDILLO MD Ot Z90. 49 ACQUIRED ABSENCE OF OTHER SPECIFIED PART 10/31/2017 LUH CEDILLO MD Ot Z98. 51 TUBAL LIGATION STATUS 03/26/2018 AUGUSTIN LEIVA DO Ot 719.47 JOINT PAIN-ANKLE 03/26/2018 AUGUSTIN LEIVA DO Ot V76.12 OTH SCREEN MAMMO-MALIGN NEOPLASM OF SANTI 03/26/2018 SHARATH HIGHTOWER MIL[employer] EQUIPMENT SPECIALIST Ot R07.9 CHEST PAIN, UNSPECIFIED Procedures There is no data. Results Test Result Range Complete blood count (CBC) with automate d white blood cell (WBC) differential - 10/29/17 11:12 Blood leukocytes automated count (number/volume) 7.1 10*3/uL 4.3-11.0 Blood erythrocytes automated count (number/volume) 4.20 10*6/uL 4.35-5.85 Venous blood hemoglobin measurement (mass/volume) 11.7 g/dL 11.5-16.0 Blood hematocrit (volume fraction) 36 % 35-52 Automated erythrocyte mean corpuscular volume 86 [ foz_us] 80-99 Automated erythrocyte mean corpuscular h emoglobin (mass per erythrocyte) 28 pg 25-34 Automated erythrocyte mean corpuscular h emoglobin concentration measurement (mass/volume) 33 g/dL 32-36 Automated erythrocyte distribution width ratio 13. 4 % 10.0- 14.5 Automated blood platelet count (count/volume) 243 10*3/uL 130-400 Automated blood platelet mean volume measurement 9.2 [foz_us] 7.4-10.4 Automated blood neutrophils/100 leukocytes 66 % 42-75 Automated blood lymphocytes/100 leukocytes 24 % 12-44 Blood monocytes/100 leukocytes 7 % 0-12 Automated blood eosinophils/100 leukocytes 2 % 0-10 Automated blood basophils/100 leukocytes 0 % 0-10 Blood neutrophils automated count (number/volume) 4.7 10*3 1.8-7.8 Blood lymphocytes automated count (number/volume) 1.7 10*3 1.0-4.0 Blood monocytes automated count (number/volume) 0. 5 10*3 0.0-1.0 Automated eosinophil count 0.2 10*3/uL 0 .0-0.3 Automated blood basophil count (count/volume) 0.0 10*3/uL 0.0-0.1 Comprehensive metabolic panel - 10/29/17 11:12 Serum or plasma sodium measurement (moles/volume) 138 mmol/L 135-145 Serum or plasma potassium measurement (moles/volume) 3.5 mmol/L 3.6-5.0 Serum or plasma chloride measurement (moles/volume) 98 mmol/L 98-107 Carbon dioxide 26 mmol/L 21-32 Serum or plasma anion gap determination (moles/volume) 14 mmol/L 5-14 Serum or plasma urea nitrogen measurement (mass/volume ) 28 mg/dL 7-18 Serum or plasma creatinine measurement (mass/volume) 1.05 mg/dL 0.60-1.30 Serum or plasma urea nitrogen/creatinine mass ratio 27 NRG Serum or plasma creatinine measurement w ith calculation of estimated glomerular filtration rate 54 NRG Serum or plasma glucose measurement (mass/volume) 84 mg/dL 70-105 Serum or plasma calcium measurement (mass/volume) 9.7 mg/dL 8.5-10.1 Serum or plasma total bilirubin measurement (mass/volu me) 0.4 mg/dL 0.1-1.0 Serum or plasma alkaline phosphatase shazia surement (enzymatic activity/volume) 97 U/L 40-136 Serum or plasma aspartate aminotransfera se measurement (enzymatic activity/volume) 36 U/L 5-34 Serum or plasma alanine aminotransferase measurement (enzymatic activity/volume) 36 U/L 0-55 Serum or plasma protein measurement (mass/volume) 7.2 g/dL 6.4-8.2 Serum or plasma albumin measurement (mass/volume) 4.3 g/dL 3.2-4.5 Serum or plasma C reactive protein measu rement (mass/volume) - 10/29/17 11:12 Serum or plasma C reactive protein measurement (mass/v olume) 0.53 mg/dL 0.00-0.50 Erythrocyte sedimentation rate by dania gren method - 10/29/17 11:12 Erythrocyte sedimentation rate by westergren method 40 mm 0- 30 Complete blood count (CBC) with automate d white blood cell (WBC) differential - 12/27/19 13:50 Blood leukocytes automated count (number/volume) 6.2 10*3/uL 4.3-11.0 Blood erythrocytes automated count (number/volume) 4.32 10*6/uL 4.35-5.85 Venous blood hemoglobin measurement (mass/volume) 12.4 g/dL 11.5-16.0 Blood hematocrit (volume fraction) 37 % 35-52 Automated erythrocyte mean corpuscular volume 85 [ foz_us] 80-99 Automated erythrocyte mean corpuscular h emoglobin (mass per erythrocyte) 29 pg 25-34 Automated erythrocyte mean corpuscular h emoglobin concentration measurement (mass/volume) 34 g/dL 32-36 Automated erythrocyte distribution width ratio 12. 8 % 10.0- 14.5 Automated blood platelet count (count/volume) 251 10*3/uL 130-400 Automated blood platelet mean volume measurement 9.5 [foz_us] 7.4-10.4 Automated blood neutrophils/100 leukocytes 59 % 42-75 Automated blood lymphocytes/100 leukocytes 31 % 12-44 Blood monocytes/100 leukocytes 8 % 0-12 Automated blood eosinophils/100 leukocytes 2 % 0-10 Automated blood basophils/100 leukocytes 0 % 0-10 Blood neutrophils automated count (number/volume) 3.7 10*3 1.8-7.8 Blood lymphocytes automated count (number/volume) 2.0 10*3 1.0-4.0 Blood monocytes automated count (number/volume) 0. 5 10*3 0.0-1.0 Automated eosinophil count 0.2 10*3/uL 0 .0-0.3 Automated blood basophil count (count/volume) 0.0 10*3/uL 0.0-0.1 Comprehensive metabolic panel - 12/27/19 13:50 Serum or plasma sodium measurement (moles/volume) 138 mmol/L 135-145 Serum or plasma potassium measurement (moles/volume) 4.1 mmol/L 3.6-5.0 Serum or plasma chloride measurement (moles/volume) 102 mmol/L 98-107 Carbon dioxide 25 mmol/L 21-32 Serum or plasma anion gap determination (moles/volume) 11 mmol/L 5-14 Serum or plasma urea nitrogen measurement (mass/volume ) 13 mg/dL 7-18 Serum or plasma creatinine measurement (mass/volume) 1.03 mg/dL 0.60-1.30 Serum or plasma urea nitrogen/creatinine mass ratio 13 NRG Serum or plasma creatinine measurement w ith calculation of estimated glomerular filtration rate 55 NRG Serum or plasma glucose measurement (mass/volume) 110 mg/dL 70-105 Serum or plasma calcium measurement (mass/volume) 9.8 mg/dL 8.5-10.1 Serum or plasma total bilirubin measurement (mass/volu me) 0.3 mg/dL 0.1-1.0 Serum or plasma alkaline phosphatase shazia surement (enzymatic activity/volume) 107 U/L 40-136 Serum or plasma aspartate aminotransfera se measurement (enzymatic activity/volume) 19 U/L 5-34 Serum or plasma alanine aminotransferase measurement (enzymatic activity/volume) 15 U/L 0-55 Serum or plasma protein measurement (mass/volume) 7.1 g/dL 6.4-8.2 Serum or plasma albumin measurement (mass/volume) 4.2 g/dL 3.2-4.5 CALCIUM CORRECTED 9.6 mg/dL 8.5-10.1 Encounters ACCT No. Visit Date/Time Discharge Status Pt. Type Provider Facility Loc./Unit Complaint [id number] 09/27/2018 15:34:00 019 23:59:59 CLS Preadmit LEIVA DO, AUGUSTIN Vi [facility] RAD SCREENING [id number] 05/28/2018 16:14:00 018 23:59:59 CLS Preadmit LEIVA DO, AUGUSTIN [facility] RAD SCREENING [id number] 03/20/2018 10:55:00 018 23:59:59 CLS Outpatient CALIN PADRON MD [facility] OCC injury [id number] 10/29/2017 08:58:00 018 12:14:00 DIS Emergency LUH CEDILLO MD [facility] ER VOMITING, TICK FEVER [id number] 04/28/2015 07:22:00 015 23:59:59 CLS Outpatient SHARATH HIGHTOWER MIL[employer] EQUIPMENT SPECIALIST [facility] CARD CP [id number] 01/07/2014 10:11:00 014 23:59:59 CLS Outpatient LEIVA DO, AUGUSTIN [facility] RAD SCREENING [id number] 04/01/2013 11:58:00 013 23:59:59 CLS Outpatient LEIVA DO, AUGUSTIN [facility] RAD R ANKLE PAIN [id number] 12/27/2019 13:50:[address] Emergency RICCI BUCKNER APRN [facility] ER OVERDOSE [id number] 04/28/2015 07:21:00 Document Registration [id number] 04/28/2015 07:21:00 Document Registration [id number] 10/04/2012 14:05:00 Document Registration [id number] 10/17/2011 08:23:00 Document Registration [id number] 07/04/2011 00:00:00 Document Registration [id number] 04/06/2011 06:19:00 Document Registration [id number] 03/02/2011 07:01:00 Document Registration [id number] 10/07/2010 12:19:00 Document Registration [id number] 10/07/2010 07:29:00 Document Registration [id number] 05/31/2010 07:02:00 Document Registration [id number] 03/15/2010 14:45:00 Document Registration [id number] 02/05/2010 07:14:00 Document Registration [id number] 02/03/2010 15:14:00 Document Registration [id number] 11/09/2009 06:24:00 Document Registration
== END 2019-12-27 17:05 | disposition home or self-care (01) ==
LOC: EDUNIT# 13:48 → ER 13:50
DX: T50.5X1A Poisoning by appetite depressants, accidental (unintentional), initial encounter (principal); F32.9 Major depressive disorder, single episode, unspecified; E11.9 Type 2 diabetes mellitus without complications; K21.9 Gastro-esophageal reflux disease without esophagitis; Z88.8 Allergy status to other drugs, medicaments and biological substances; Z79.52 Long term (current) use of systemic steroids; Z79.84 Long term (current) use of oral hypoglycemic drugs
CPT/HCPCS: 36415; 80053; 85025; 93005